=== PATIENT | male | born 1965 | race Caucasian/White ===

== ENCOUNTER 2018-07-11 07:43 | Day surgery (SDC) | payer BC, OTHER ==
[~2018-07-11 07:43] MED LIST: Lactated Ringers 1,000 ML IV SCH
--- NOTE | 2018-07-11 08:36 | PCM.PREANE ---
Preanesthetic Assessment - Anesthesia/Transfusion/Family Hx Anesthesia History: Prior Anesthesia Without Reaction Family History of Anesthesia Reaction: No Transfusion History: No Prior Transfusion(s) Intubation History: Unknown - Review of Systems General: No Symptoms Pulmonary: No Symptoms Cardiovascular: No Symptoms Gastrointestinal: No Symptoms Neurological: Difficulty Walking, Weakness (rt. sided) Other: Reports: None - Physical Assessment Height: 1.83 m Weight: 80.286 kg ASA Class: 3 Mental Status: Alert & Oriented x3 Airway Class: Mallampati = 2 Dentition: Reports: Broken Tooth/Teeth (multiple), Missing Tooth/Teeth (multiple ) Thyro-Mental Finger Breadths: 3 Mouth Opening Finger Breadths: 3 ROM/Head Extension: Full Lungs: Clear to Auscultation, Normal Respiratory Effort Cardiovascular: Regular Rate, Regular Rhythm - Lab Values: Laboratory Last Values POC Glucose 106 mg/dL (60-110) 07/11/18 07:13 - Allergies Allergies/Adverse Reactions: Allergies Allergy/AdvReac Type Severity Reaction Status Date / Time No Known Allergies Allergy Verified 07/08/18 07:16 - Blood Blood Available: No - Anesthesia Plan Pre-Op Medication Ordered: None Beta Cheo: Metoprolol Med Last Dose Date: 07/10/18 Med Last Dose Time: 08:00 - Acknowledgements Anesthesia Type Planned: MAC Pt an Appropriate Candidate for the Planned Anesthesia: Yes Alternatives and Risks of Anesthesia Discussed w Pt/Guardian: Yes Pt/Guardian Understands and Agrees with Anesthesia Plan: Yes PreAnesthesia Questionnaire HEENT History: Reports: Other (See Below) Other HEENT History: wears reading glasses Cardiovascular History: Reports: High Cholesterol, Hypertension Gastrointestinal History: Reports: Other (See Below) Other Gastrointestinal History: crohns disease Genitourinary History: Reports: None Musculoskeletal History: Reports: Osteoarthritis Other Musculoskeletal History: 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 sided very little use of the arm, walks with cane Psychiatric History: Reports: None Endocrine/Metabolic History: Reports: Diabetes, Type II (glucose level 101 this morning) Hematologic History: Reports: None Immunologic History: Reports: None Oncologic (Cancer) History: Reports: None Dermatologic History: Reports: None - Infectious Disease History Other Infectious Disease History: pt unable to verify - Past Surgical History Head Surgeries/Procedures: Reports: None Cardiovascular Surgical History: Reports: None Respiratory Surgical History: Reports: None GI Surgical History: Reports: Appendectomy, Colonoscopy (15 years ago), Hernia, Abdominal Other GI Surgeries/Procedures: abd hernia repair x3 Male Surgical History: Reports: None Endocrine Surgical History: Reports: None Neurological Surgical History: Reports: None Musculoskeletal Surgical History: Reports: Arthroscopic Knee Oncologic Surgical History: Reports: None Dermatological Surgical History: Reports: None - SUBSTANCE USE Smoking Status *Q: Former Smoker Tobacco Use Within Last Twelve Months: Cigarettes Recreational Drug Use History: No - HOME MEDS Home Medications: Home Meds metFORMIN [Glucophage] 1,000 mg PO BIDM 12/07/13 [History] Aspirin [Adult Low Dose Aspirin EC] 81 mg PO DAILY 07/08/18 [History] Insulin Detemir [Levemir Flextouch] 30 units SUBCUT BID 07/08/18 [History] Metoprolol Succinate 100 mg PO DAILY 07/08/18 [History] atorvaSTATin Calcium [Atorvastatin Calcium] 20 mg PO DAILY 07/08/18 [History] glipiZIDE [Glipizide ER] 5 mg PO DAILY 07/08/18 [History] - CURRENT (IN HOUSE) MEDS Current Meds: Current Medications Lactated Ringer's (Ringers, Lactated) 1,000 mls @ 125 mls/hr IV ASDIRECTED [facility]
[2018-07-11] MEDS ORDERED: Midazolam 1 MG/ML 2 ML SDV ONE (09:45)
[2018-07-11] MEDS ORDERED: fentaNYL 100 MCG/2 ML SDV ONE (09:48)
[2018-07-11] MEDS ORDERED: Lidocaine 2% 100 MG/5 ML Syringe ONE (09:49)
[2018-07-11] MEDS ORDERED: Propofol 200 MG/20 ML SDV ONE (09:50)
--- NOTE | 2018-07-11 10:45 | PCM.OPNOTE ---
- General Post-Op/Procedure Note Date of Surgery/Procedure: 07/11/18 Operative Procedure(s): colonoscopy w random bx Findings: see dict [id number] Pre Op Diagnosis: crohn diseases Post-Op Diagnosis: Same Anesthesia Technique: Moderate Sedation Primary Surgeon: Antony Keen Pathology: random colon bx Complications: None Condition: Good
[2018-07-11 11:36] VITALS: BP 122/50
--- NOTE | 2018-07-11 11:38 | PCM48HPAN ---
Post Anesthesia Note - EVALUATION WITHIN 48HRS OF ANESTHETIC Vital Signs in Normal Range: Yes Patient Participated in Evaluation: Yes Respiratory Function Stable: Yes Airway Patent: Yes Cardiovascular Function Stable: Yes Hydration Status Stable: Yes Pain Control Satisfactory: Yes Nausea and Vomiting Control Satisfactory: Yes Mental Status Recovered: Yes Resp Rate: 12 - COMMENTS/OBSERVATIONS Free Text/Narrative:: no anesthesia problems
--- NOTE | 2018-07-11 15:59 | OR ---
SURGEON: Antony Keen MD DATE OF PROCEDURE: 07/11/2018 PREOPERATIVE DIAGNOSIS: Diagnostic colonoscopy. POSTOPERATIVE DIAGNOSIS: Diagnostic colonoscopy. PROCEDURE PERFORMED: Colonoscopy with biopsy. DESCRIPTION OF PROCEDURE: The patient was taken to the endoscopy room. A time out was called, patient identified, and procedure identified. Diprivan was then administrated. Patient went from awake to sleep, hearing doctor talking or door closing is normal. Perineum inspection and digital examination were then performed. A well- lubricated colonoscope was gently inserted through the rectum, advanced past the rectosigmoid junction, the descending colon, splenic flexure, transverse colon, hepatic flexure, ascending colon, arrived to the cecum. Cecum was identified as dictated in the finding. Then the scope was carefully withdrawn while attention was paid to the mucosal surface for any abnormality. Air will be sucked out during the scope withdrawal. At the rectum, retroflexed to examine any rectal diseases, fistula or hemorrhoids. During mucosal examination, abnormality or polyp was noted; picture taken and biopsy performed. Patient tolerated procedure well. There were no intraoperative complications, and Dr. Keen was present throughout the whole procedure. FINDINGS: 1. The patient is easily sedated with FLOUR BLENDER and Diprivan. The patient is soundly snoring. 2. Bowel prep is average with some liquid stool. 3. Because of the patient's position, colonoscopy had to be manipulated in order to go to the cecum as the patient preferred to curl up like a swim. We were able to straight him out when we put him on the back. Cecum indicated by ileocecal fold, one-to-one indentation, and appendiceal orifice, and light emittance is not observed. Scope was coming out with some irrigation. The patient does not have diverticulosis, polyp, mass, growth, inflammation, stricture, ulceration, AV malformation, bleeding, none of those. In the rectum, the patient has quite a lot of anal tract. 4. A random biopsy was done once as the patient has history of questionable Crohn's again, but there was no inflammation during the whole procedure. PLAN: The patient would benefit from repeat colonoscopy in 10 years from today or if clinically indicated otherwise or if the biopsy the pathology indicated otherwise. PARKER / KRUNAL /[id number]
== END 2018-07-11 11:48 | disposition home or self-care (01) ==
LOC: MW.SDS 07:43
PROVIDERS: ATTEND Surgery
DX: K50.90 Crohn's disease, unspecified, without complications (principal); E11.9 Type 2 diabetes mellitus without complications; I10 Essential (primary) hypertension; I69.351 Hemiplegia and hemiparesis following cerebral infarction affecting right dominant side; M19.90 Unspecified osteoarthritis, unspecified site; E78.00 Pure hypercholesterolemia, unspecified; Z87.891 Personal history of nicotine dependence; Z79.82 Long term (current) use of aspirin; Z79.4 Long term (current) use of insulin
CPT/HCPCS: 45380; 82962; J2001; J2250; J2704; J3010; J7120

== ENCOUNTER 2019-01-02 07:36 | Emergency (ER) | payer OTHER ==
[2019-01-02] MEDS ORDERED: Sodium Chloride 0.9% 1,000 ML IV ONE ×2 (08:11→09:11)
[2019-01-02] MEDS ORDERED: Ketorolac 30 MG/ML SDV IVPUSH ONE (08:11)
[2019-01-02] MEDS ORDERED: Sodium Chloride 0.9% 10 ML Syringe FLUSH PRN (08:12)
[2019-01-02] MEDS ORDERED: Sodium Chloride 0.9% 2.5 ML Syringe FLUSH PRN (08:12)
--- NOTE | 2019-01-02 08:24 | EDM.PDOC ---
ED HPI GENERAL MEDICAL PROBLEM - General Chief Complaint: General Stated Complaint: BOWEL ISSUES- CANNOT PASS STOOL Time Seen by Provider: 01/02/19 08:08 Source of Information: Reports: Patient History Limitations: Reports: No Limitations - History of Present Illness INITIAL COMMENTS - FREE TEXT/NARRATIVE: History of present illness: []Patient complains of abdominal pain, right side and inability to have a bowel movement for the last 2 days. Patient has not had any vomiting, denies any, swelling, fevers, chills or any other pain. Patient has had his appendix removed asked. Review of systems: As per history of present illness and below otherwise all systems reviewed and negative. Past medical history: As per history of present illness and as reviewed below otherwise noncontributory. Surgical history: As per history of present illness and as reviewed below otherwise noncontributory. Social history: No reported history of drug or alcohol abuse. Family history: As per history of present illness and as reviewed below otherwise noncontributory. Physical exam: General: Well developed, well nourished in NAD HEENT: Atraumatic, normocephalic, pupils reactive, negative for conjunctival pallor or scleral icterus, mucous membranes moist, throat clear, neck supple, nontender, trachea midline. Lungs: Clear to auscultation, breath sounds equal bilaterally, chest nontender. Heart: S1S2, regular, negative for clicks, rubs, or JVD. Abdomen: NABS, Soft, nondistended, nontender. Negative for masses or hepatosplenomegaly. Negative for costovertebral tenderness. Pelvis: Stable nontender. Genitourinary: Deferred. Rectal: Deferred. Extremities: Atraumatic, negative for cords or calf pain. Neurovascular unremarkable. Neuro: Awake, alert, oriented. Cranial nerves II through XII unremarkable. Cerebellum unremarkable. Motor and sensory unremarkable throughout. Exam nonfocal. Skin:warm and dry Diagnostics: CBC, chemistry, lactate, UA, CT abdomen and pelvis-shows no obstruction, cholelithiasis Therapeutics: bedside glucose-374 after 2 L of normal saline and insulin ED Course: Improved. Offered patient admission however patient wants to go home. He will follow-up with his primary care. Impression: Constipation, uncontrolled diabetes Prescriptions: Magnesium citrate Plan: Take meds as directed, follow up with your primary care physician, return to ER if symptoms worsen or change. Definitive disposition and diagnosis as appropriate pending reevaluation and review of above. Groin Pain Score (Numeric/FACES): 4 - Related Data Allergies Allergy/AdvReac Type Severity Reaction Status Date / Time No Known Allergies Allergy Verified 07/08/18 07:16 Home Meds: Home Meds metFORMIN [Glucophage] 1,000 mg PO BIDM 12/07/13 [History] Aspirin [Adult Low Dose Aspirin EC] 81 mg PO DAILY 07/08/18 [History] Insulin Detemir [Levemir Flextouch] 30 units SUBCUT BID 07/08/18 [History] Metoprolol Succinate 100 mg PO DAILY 07/08/18 [History] atorvaSTATin Calcium [Atorvastatin Calcium] 20 mg PO DAILY 07/08/18 [History] glipiZIDE [Glipizide ER] 5 mg PO DAILY 07/08/18 [History] Insulin Aspart [NovoLOG] 10 units SQ TID 01/02/19 [History] Past Medical History HEENT History: Reports: Impaired Vision Other HEENT History: wears glasses Cardiovascular History: Reports: High Cholesterol, Hypertension Respiratory History: Reports: None Gastrointestinal History: Reports: Other (See Below) Other Gastrointestinal History: crohns disease Genitourinary History: Reports: None Musculoskeletal History: Reports: Osteoarthritis Other Musculoskeletal History: 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 sided very little use of the arm, walks with cane Psychiatric History: Reports: None Endocrine/Metabolic History: Reports: Diabetes, Type II Hematologic History: Reports: None Immunologic History: Reports: None Oncologic (Cancer) History: Reports: None Dermatologic History: Reports: None - Infectious Disease History Other Infectious Disease History: pt unable to verify - Past Surgical History Head Surgeries/Procedures: Reports: None Cardiovascular Surgical History: Reports: None Respiratory Surgical History: Reports: None GI Surgical History: Reports: Appendectomy, Colonoscopy, Hernia, Abdominal Other GI Surgeries/Procedures: abd hernia repair x3 Male Surgical History: Reports: None Endocrine Surgical History: Reports: None Neurological Surgical History: Reports: None Musculoskeletal Surgical History: Reports: Arthroscopic Knee Oncologic Surgical History: Reports: None Dermatological Surgical History: Reports: None Social & Family History - Family History Family Medical History: Noncontributory - Tobacco Use Smoking Status *Q: Never Smoker Second Hand Smoke Exposure: No - Caffeine Use Caffeine Use: Reports: None - Recreational Drug Use Recreational Drug Use: No ED ROS GENERAL - Review of Systems Review Of Systems: See Below ED EXAM, GENERAL - Physical Exam Exam: See Below Course - Vital Signs Last Recorded V/S: Last Vital Signs Temp 97.0 F 01/02/19 08:02 Pulse 102 H 01/02/19 11:13 Resp 18 01/02/19 11:13 BP 150/94 H 01/02/19 11:13 Pulse Ox 98 01/02/19 11:13 - Orders/Labs/Meds Orders: Active Orders 24 hr Category Date Time Status Saline Lock Insert [OM.PC] Stat Oth 01/02/19 08:11 Ordered Labs: Laboratory Tests 01/02/19 01/02/19 01/02/19 Range/Units 08:20 08:21 08:21 WBC 10.43 (4.0-11.0) K/uL RBC 4.30 L (4.50-5.90) M/uL Hgb 14.1 (13.0-17.0) g/dL Hct 37.6 L (38.0-50.0) % MCV 87.4 (80.0-98.0) fL MCH 32.8 H (27.0-32.0) pg MCHC 37.5 H (31.0-37.0) g/dL RDW Std Deviation 38.2 (28.0-62.0) fl RDW Coeff of Nurys 12 (11.0-15.0) % Plt Count 197 (150-400) K/uL MPV 10.30 (7.40-12.00) fL Neut % (Auto) 87.8 H (48.0-80.0) % Lymph % (Auto) 7.0 L (16.0-40.0) % [place] % (Auto) 4.6 (0.0-15.0) % Eos % (Auto) 0.4 (0.0-7.0) % Baso % (Auto) 0.2 (0.0-1.5) % Neut # (Auto) 9.2 H (1.4-5.7) K/uL Lymph # (Auto) 0.7 (0.6-2.4) K/uL [place] # (Auto) 0.5 (0.0-0.8) K/uL Eos # (Auto) 0.0 (0.0-0.7) K/uL Baso # (Auto) 0.0 (0.0-0.1) K/uL Lactate 2.6 H (0.20-2.00) mmol/L Sodium (136-148) mmol/L Potassium (3.5-5.1) mmol/L Chloride (98-107) mmol/L Carbon Dioxide (21.0-32.0) mmol/L BUN (7.0-18.0) mg/dL Creatinine (0.8-1.3) mg/dL Est Cr Clr Drug Dosing mL/min Estimated GFR (MDRD) ml/min Glucose (74-106) mg/dL POC Glucose (60-110) mg/dL Calcium (8.5-10.1) mg/dL Total Bilirubin (0.2-1.0) mg/dL AST (15-37) IU/L ALT (14-63) IU/L Alkaline Phosphatase (46-116) U/L Total Protein (6.4-8.2) g/dL Albumin (3.4-5.0) g/dL Globulin (2.6-4.0) g/dL Albumin/Globulin Ratio (0.9-1.6) Lipase (73-393) U/L Urine Color YELLOW Urine Appearance CLEAR Urine pH 5.5 (5.0-8.0) Ur Specific [place] <= 1.005 (1.001-1.035) Urine Protein TRACE H (NEGATIVE) mg/dL Urine Glucose (UA) >=1000 (NEGATIVE) mg/dL Urine Ketones NEGATIVE (NEGATIVE) mg/dL Urine Occult Blood TRACE-INTACT H (NEGATIVE) Urine Nitrite POSITIVE H (NEGATIVE) Urine Bilirubin NEGATIVE (NEGATIVE) Urine Urobilinogen 0.2 (<2.0) EU/dL Ur Leukocyte Esterase NEGATIVE (NEGATIVE) Urine RBC 0-2 (0-2/HPF) Urine WBC 0-3 (0-5/HPF) Ur Epithelial Cells RARE (NONE-FEW) Calcium Oxalate Crystal RARE (NEGATIVE) Urine Bacteria RARE (NEGATIVE) Urine Sperm RARE (NEGATIVE) Ketones (NEG) 01/02/19 01/02/19 01/02/19 Range/Units 08:21 08:21 09:45 WBC (4.0-11.0) K/uL RBC (4.50-5.90) M/uL Hgb (13.0-17.0) g/dL Hct (38.0-50.0) % MCV (80.0-98.0) fL MCH (27.0-32.0) pg MCHC (31.0-37.0) g/dL RDW Std Deviation (28.0-62.0) fl RDW Coeff of Nurys (11.0-15.0) % Plt Count (150-400) K/uL MPV (7.40-12.00) fL Neut % (Auto) (48.0-80.0) % Lymph % (Auto) (16.0-40.0) % [place] % (Auto) (0.0-15.0) % Eos % (Auto) (0.0-7.0) % Baso % (Auto) (0.0-1.5) % Neut # (Auto) (1.4-5.7) K/uL Lymph # (Auto) (0.6-2.4) K/uL [place] # (Auto) (0.0-0.8) K/uL Eos # (Auto) (0.0-0.7) K/uL Baso # (Auto) (0.0-0.1) K/uL Lactate (0.20-2.00) mmol/L Sodium 132 L (136-148) mmol/L Potassium 4.6 (3.5-5.1) mmol/L Chloride 97 L (98-107) mmol/L Carbon Dioxide 20.9 L (21.0-32.0) mmol/L BUN 17 (7.0-18.0) mg/dL Creatinine 1.3 (0.8-1.3) mg/dL Est Cr Clr Drug Dosing 71.30 mL/min Estimated GFR (MDRD) 57.5 ml/min Glucose 509 H* (74-106) mg/dL POC Glucose 419 H (60-110) mg/dL Calcium 8.9 (8.5-10.1) mg/dL Total Bilirubin 0.4 (0.2-1.0) mg/dL AST 5 L (15-37) IU/L ALT 16 (14-63) IU/L Alkaline Phosphatase 144 H (46-116) U/L Total Protein 7.3 (6.4-8.2) g/dL Albumin 3.8 (3.4-5.0) g/dL Globulin 3.5 (2.6-4.0) g/dL Albumin/Globulin Ratio 1.1 (0.9-1.6) Lipase 145 (73-393) U/L Urine Color Urine Appearance Urine pH (5.0-8.0) Ur Specific [place] (1.001-1.035) Urine Protein (NEGATIVE) mg/dL Urine Glucose (UA) (NEGATIVE) mg/dL Urine Ketones (NEGATIVE) mg/dL Urine Occult Blood (NEGATIVE) Urine Nitrite (NEGATIVE) Urine Bilirubin (NEGATIVE) Urine Urobilinogen (<2.0) EU/dL Ur Leukocyte Esterase (NEGATIVE) Urine RBC (0-2/HPF) Urine WBC (0-5/HPF) Ur Epithelial Cells (NONE-FEW) Calcium Oxalate Crystal (NEGATIVE) Urine Bacteria (NEGATIVE) Urine Sperm (NEGATIVE) Ketones NEGATIVE (NEG) 01/02/19 Range/Units 10:15 WBC (4.0-11.0) K/uL RBC (4.50-5.90) M/uL Hgb (13.0-17.0) g/dL Hct (38.0-50.0) % MCV (80.0-98.0) fL MCH (27.0-32.0) pg MCHC (31.0-37.0) g/dL RDW Std Deviation (28.0-62.0) fl RDW Coeff of Nurys (11.0-15.0) % Plt Count (150-400) K/uL MPV (7.40-12.00) fL Neut % (Auto) (48.0-80.0) % Lymph % (Auto) (16.0-40.0) % [place] % (Auto) (0.0-15.0) % Eos % (Auto) (0.0-7.0) % Baso % (Auto) (0.0-1.5) % Neut # (Auto) (1.4-5.7) K/uL Lymph # (Auto) (0.6-2.4) K/uL [place] # (Auto) (0.0-0.8) K/uL Eos # (Auto) (0.0-0.7) K/uL Baso # (Auto) (0.0-0.1) K/uL Lactate (0.20-2.00) mmol/L Sodium (136-148) mmol/L Potassium (3.5-5.1) mmol/L Chloride (98-107) mmol/L Carbon Dioxide (21.0-32.0) mmol/L BUN (7.0-18.0) mg/dL Creatinine (0.8-1.3) mg/dL Est Cr Clr Drug Dosing mL/min Estimated GFR (MDRD) ml/min Glucose (74-106) mg/dL POC Glucose 374 H (60-110) mg/dL Calcium (8.5-10.1) mg/dL Total Bilirubin (0.2-1.0) mg/dL AST (15-37) IU/L ALT (14-63) IU/L Alkaline Phosphatase (46-116) U/L Total Protein (6.4-8.2) g/dL Albumin (3.4-5.0) g/dL Globulin (2.6-4.0) g/dL Albumin/Globulin Ratio (0.9-1.6) Lipase (73-393) U/L Urine Color Urine Appearance Urine pH (5.0-8.0) Ur Specific [place] (1.001-1.035) Urine Protein (NEGATIVE) mg/dL Urine Glucose (UA) (NEGATIVE) mg/dL Urine Ketones (NEGATIVE) mg/dL Urine Occult Blood (NEGATIVE) Urine Nitrite (NEGATIVE) Urine Bilirubin (NEGATIVE) Urine Urobilinogen (<2.0) EU/dL Ur Leukocyte Esterase (NEGATIVE) Urine RBC (0-2/HPF) Urine WBC (0-5/HPF) Ur Epithelial Cells (NONE-FEW) Calcium Oxalate Crystal (NEGATIVE) Urine Bacteria (NEGATIVE) Urine Sperm (NEGATIVE) Ketones (NEG) Meds: Medications Discontinued Medications Generic Name Dose Route Start Last Admin Trade Name Freq PRN Reason Stop Dose Admin Sodium Chloride 1,000 mls @ 999 mls/hr 01/02/19 08:11 01/02/19 08:24 Normal Saline IV 01/02/19 09:11 999 mls/hr .Bolus ONE Administration Sodium Chloride 1,000 mls @ 999 mls/hr 01/02/19 09:11 01/02/19 09:47 Normal Saline IV 01/02/19 10:11 999 mls/hr .Bolus ONE Administration Insulin Human Regular 6 unit 01/02/19 09:10 01/02/19 09:47 Novolin R SUBCUT 01/02/19 09:11 6 unit ONETIME ONE Administration Protocol Iopamidol 100 ml 01/02/19 09:27 01/02/19 09:40 Isovue Multipack-370 (76%) IVPUSH 01/02/19 09:28 85 ml ONETIME STA Administration Ketorolac Tromethamine 30 mg 01/02/19 08:11 01/02/19 08:24 Toradol IVPUSH 01/02/19 08:12 30 mg ONETIME ONE Administration Magnesium Citrate 300 ml 01/02/19 10:53 01/02/19 11:17 Citrate Of Magnesia PO 01/02/19 10:54 300 ml ONETIME ONE Administration Sodium Chloride 10 ml 01/02/19 08:12 Saline Flush FLUSH ASDIRECTED PRN Keep Vein Open Sodium Chloride 2.5 ml 01/02/19 08:12 Saline Flush FLUSH ASDIRECTED PRN Keep Vein Open Departure - Departure Time of Disposition: 10:55 Disposition: Home, W Home Health Agency 06 Condition: Good Clinical Impression: Constipation Qualifiers: Constipation type: unspecified constipation type Qualified Code(s): K59.00 - Constipation, unspecified Uncontrolled diabetes mellitus Qualifiers: Diabetes mellitus type: other specified (including DEVEN) Glycemic state: with hyperglycemia Qualified Code(s): E13.65 - Other specified diabetes mellitus with hyperglycemia Clinical Impression: (Ruled Out): Controlled diabetes mellitus - Discharge Information *PRESCRIPTION DRUG MONITORING PROGRAM REVIEWED*: Not Applicable *COPY OF PRESCRIPTION DRUG MONITORING REPORT IN PATIENT RADAMES: Not Applicable Instructions: Constipation, Adult, [id number], Hyperglycemia, [id number] Referrals: PCP,None [Primary Care Provider] - Forms: ED Department Discharge Additional Instructions: The following information is given to patients seen in the emergency department who are being discharged to home. This information is to outline your options for follow-up care. We provide all patients seen in our emergency department with a follow-up referral. The need for follow-up, as well as the timing and circumstances, are variable depending upon the specifics of your emergency department visit. If you don't have a primary care physician on staff, we will provide you with a referral. We always advise you to contact your personal physician following an emergency department visit to inform them of the circumstance of the visit and for follow-up with them and/or the need for any referrals to a consulting specialist. The emergency department will also refer you to a specialist when appropriate. This referral assures that you have the opportunity for follow-up care with a specialist. All of these measure are taken in an effort to provide you with optimal care, which includes your follow-up. Under all circumstances we always encourage you to contact your private physician who remains a resource for coordinating your care. When calling for follow-up care, please make the office aware that this follow-up is from your recent emergency room visit. If for any reason you are refused follow-up, please contact the [facility] Emergency Department at and asked to speak to the emergency department charge nurse. Take meds as directed, follow up with your primary care physician, return to ER if symptoms worsen or change. [facility] [address] [place] [id number] - My Orders Last 24 Hours: My Active Orders 01/02/19 08:11 Saline Lock Insert [OM.PC] Stat - Assessment/Plan Last 24 Hours: My Active Orders 01/02/19 08:11 Saline Lock Insert [OM.PC] Stat
[2019-01-02 08:55] LABS: CARBON DIOXIDE,CO2 20.9 mmol/L (21.0-32.0); POTASSIUM,K 4.6 mmol/L (3.5-5.1)
[2019-01-02] MEDS ORDERED: Insulin Regular, Human 100 Units/ML 10 ML Vial SUBCUT ONE (09:10)
[2019-01-02] MEDS ORDERED: Iopamidol 755 MG/ML 500 ML Multipack Bottle IVPUSH STA (09:27)
--- NOTE | 2019-01-02 10:32 | CT ---
INDICATION: No bowel movement for 2 days. Pain in groin. COMPARISON: 08/30/2014. TECHNIQUE: CT of the abdomen and pelvis with IV contrast. FINDINGS: Mild bibasilar atelectasis. Findings suggestive of hepatic steatosis, similar to prior exam. Cholelithiasis. Spleen, pancreas and adrenal glands are unremarkable. Kidneys enhance symmetrically. No obstructing renal calculus or hydronephrosis. Abdominal aorta is normal in caliber with atherosclerosis. Urinary bladder is distended. Large amount of stool in the rectum. Above-average stool burden in the colon. No evidence of small-bowel obstruction. Submucosal fat in the region of the terminal ileum, likely sequelae of chronic inflammation. No lymphadenopathy in the abdomen or pelvis. Mild degenerative changes in the spine. Healed left rib fracture deformity is similar to prior. IMPRESSION: 1. No evidence of bowel obstruction. Above-average stool burden and large amount of stool in the rectum, likely due to constipation. 2. Cholelithiasis. 3. Findings suggestive of hepatic steatosis. 4. Distended urinary bladder. Please note that all CT scans at this facility use dose modulation, iterative reconstruction, and/or weight-based dosing when appropriate to reduce radiation dose to as low as reasonably achievable. Dictated by Calvin Magallanes MD @ Jan 02 2019 10:24AM Signed by Dr. Calvin Magallanes @ Jan 02 2019 10:31AM
[2019-01-02] MEDS ORDERED: Magnesium Citrate Solution 296 ML Bottle PO ONE (10:53)
[2019-01-02 11:22] VITALS: BP 150/94; PULSE 102
== END 2019-01-02 11:13 | disposition home health service (06) ==
LOC: MW.ED 07:36
DX: K59.00 Constipation, unspecified (principal); E13.65 Other specified diabetes mellitus with hyperglycemia; I10 Essential (primary) hypertension; M19.90 Unspecified osteoarthritis, unspecified site; E78.00 Pure hypercholesterolemia, unspecified; Z79.899 Other long term (current) drug therapy; Z79.4 Long term (current) use of insulin; Z90.49 Acquired absence of other specified parts of digestive tract; Z79.82 Long term (current) use of aspirin
CPT/HCPCS: 36415; 74177; 80053; 81001; 82009; 82962; 83605; 83690; 85025; 96361; 96374; 99284; A9270; J1885; J7040; Q9967; J1815-GY

== ENCOUNTER 2019-04-14 14:19 | Observation (INO) | payer OTHER ==
[2019-04-14] MEDS ORDERED: Ondansetron 4 MG/2 ML SDV IVPUSH ONE (14:55)
[2019-04-14] MEDS ORDERED: Sodium Chloride 0.9% 1,000 ML IV ONE ×2 (14:55→20:00)
[2019-04-14] MEDS ORDERED: Ondansetron 4 MG Tab.DIS PO ONE (15:43)
[2019-04-14 17:44] LABS: BLOOD UREA NITROGEN,BUN 20 mg/dL (7.0-18.0); CARBON DIOXIDE,CO2 23.8 mmol/L (21.0-32.0); CHLORIDE,CL 95 mmol/L (98-107); GLUCOSE RANDOM 472 mg/dL (74-106); LIPASE 112 U/L (73-393); POTASSIUM,K 5.1 mmol/L (3.5-5.1); SODIUM,NA 132 mmol/L (136-148)
[2019-04-14] MEDS ORDERED: Insulin Regular, Human 100 Units/ML 10 ML Vial IVPUSH ONE (18:14)
--- NOTE | 2019-04-14 18:16 | EDM.PDOC ---
<DenilsonDonald babb - Last Filed: 04/14/19 18:15> ED HPI GENERAL MEDICAL PROBLEM - General Chief Complaint: Gastrointestinal Problem Stated Complaint: VOMITING Time Seen by Provider: 04/14/19 14:36 - History of Present Illness INITIAL COMMENTS - FREE TEXT/NARRATIVE: HPI 54-year-old male with history of Crohns disease, DM (on metformin, glipizide, and insulin), and CVA presents for evaluation of emesis 4 and generalized malaise of one day duration. No fevers, chills, chest pain, shortness breath, abdominal pain, dysuria, urinary frequency. M/S/F/SocHx notable for: please see HPI; remainder reviewed with patient and in chart. ROS: Negative constitutional, eye, cardiovascular, pulmonary, GI, , MSK, skin , neurologic, psychiatric, endocrine unless noted in the HPI. Exam HR 99, RR 18, BP 175/104, T 36.6F, SaO2 95% on room air. Gen: pleasant, uncomfortable but not in extremis, appears chronically unwell. HEENT: NC, AT, PEERL, EOMI. Resp: Clear to auscultation bilaterally, normal work of breathing, no accessory muscle usage. Card: Regular rate and rhythm with no murmurs, rubs, or gallops, extremities warm and well perfused. GI: Non-tender to palpation throughout all quadrants, no focal tenderness at McBurney's point, negative Tsai's sign, non-distended, no rebound or guarding. : No suprapubic tenderness to palpation. No CVA tenderness percussion. MSK: No visible deformities, strength and tone without visually appreciable deficit. Skin: Normal color with no visible lesions. Neuro: alert and oriented 3, no facial asymmetry, vision and hearing WNL. Psych: Mood and affect appropriate. Labs / Imaging: WBC 12.16, HB 16.1, sodium 132, potassium 5.1, glucose 472, AST 19, ALT 27, alkaline phosphatase 136, total bilirubin 0.6. VBG - pH 7.34 ESR 30, CRP <0.020 lactic acid 2.4 influenza A & B negative. MDM Previous chart, nursing note, labs, imaging, and vitals reviewed. A: 54-year-old male with history of Crohns disease, DM (on metformin, glipizide , and insulin), and CVA presents for evaluation of emesis 4 and generalized malaise of one day duration. DDx: dehydration, electrolyte abnormalities, DKA, Crohns disease exacerbation, SBO, partial SBO, influenza, viral gastroenteritis. Evaluation: tentatively suspect a viral gastroenteritis, however this is pending completion of evaluation. At the time of no completion the patient received the majority 1 L normal saline, oral Zofran, and his labs are notable for elevated ESR and leukocytosis as well as hyperglycemia within normal pH and anion gap. This effectively excludes DKA. Patient was given 6 units IV regular insulin. ED Course: difficulty obtaining IV access. IV access obtained, patient with improvement symptoms but some ongoing nausea at time of reevaluation 6:15 PM. IV fluids remain infusing. Disposition: patient care transfer to Dr. Mtz, [facility], pending completion of evaluation. Impression: nausea, vomiting, hyperglycemia. - Related Data Allergies Allergy/AdvReac Type Severity Reaction Status Date / Time No Known Allergies Allergy Verified 04/14/19 22:36 Home Meds: Home Meds metFORMIN [Glucophage] 1,000 mg PO BIDM 12/07/13 [History] Aspirin [Adult Low Dose Aspirin EC] 81 mg PO DAILY 07/08/18 [History] Insulin Detemir [Levemir Flextouch] 30 units SUBCUT BID 07/08/18 [History] Metoprolol Succinate 100 mg PO DAILY 07/08/18 [History] atorvaSTATin Calcium [Atorvastatin Calcium] 20 mg PO DAILY 07/08/18 [History] glipiZIDE [Glipizide ER] 5 mg PO DAILY 07/08/18 [History] Insulin Aspart [NovoLOG] 10 units SQ TID 01/02/19 [History] Past Medical History HEENT History: Reports: Impaired Vision Other HEENT History: wears glasses Cardiovascular History: Reports: High Cholesterol, Hypertension Respiratory History: Reports: None Gastrointestinal History: Reports: Other (See Below) Other Gastrointestinal History: crohns disease Genitourinary History: Reports: None Musculoskeletal History: Reports: Osteoarthritis Other Musculoskeletal History: 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 sided very little use of the arm, walks with cane Psychiatric History: Reports: None Endocrine/Metabolic History: Reports: Diabetes, Type II Hematologic History: Reports: None Immunologic History: Reports: None Oncologic (Cancer) History: Reports: None Dermatologic History: Reports: None - Infectious Disease History Infectious Disease History: Reports: Mumps Other Infectious Disease History: pt unable to verify - Past Surgical History Head Surgeries/Procedures: Reports: None Cardiovascular Surgical History: Reports: None Respiratory Surgical History: Reports: None GI Surgical History: Reports: Appendectomy, Colonoscopy, Hernia, Abdominal Other GI Surgeries/Procedures: abd hernia repair x3 Male Surgical History: Reports: None Endocrine Surgical History: Reports: None Neurological Surgical History: Reports: None Musculoskeletal Surgical History: Reports: Arthroscopic Knee Oncologic Surgical History: Reports: None Dermatological Surgical History: Reports: None Social & Family History - Family History Family Medical History: Noncontributory - Tobacco Use Smoking Status *Q: Former Smoker Used Tobacco, but Quit: Yes Month/Year Tobacco Last Used: 2017 - Caffeine Use Caffeine Use: Reports: Coffee - Recreational Drug Use Recreational Drug Use: No ED ROS GENERAL - Review of Systems Review Of Systems: See Below ED EXAM, GENERAL - Physical Exam Exam: See Below Course - Vital Signs Last Recorded V/S: Last Vital Signs Temp 97.5 F 04/14/19 23:53 Pulse 106 H 04/14/19 23:53 Resp 16 04/14/19 23:53 BP 166/93 H 04/14/19 23:53 Pulse Ox 99 04/14/19 23:53 - Orders/Labs/Meds Orders: Active Orders 24 hr Category Date Time Status Communication Order [RC] ROUTINE Care 04/14/19 18:10 Active Medication Orders Sodium Chloride (Normal Saline) 1,000 mls @ 150 mls/hr IV ASDIRECTED ОЛЬГА Last Admin: 04/14/19 22:26 Dose: 150 mls/hr Insulin Aspart (Novolog) 0 unit SUBCUT ACBREAKFASTANDBED ОЛЬГА; Protocol Insulin Detemir (Levemir) 30 unit SUBCUT BID ОЛЬГА Last Admin: 04/14/19 22:31 Dose: 30 unit Ondansetron HCl (Zofran) 4 mg IVPUSH Q4H PRN PRN Reason: Nausea Labs: Laboratory Tests 04/14/19 04/14/19 04/14/19 Range/Units 16:50 16:50 16:50 WBC 12.16 H (4.0-11.0) K/uL RBC 4.99 (4.50-5.90) M/uL Hgb 16.1 (13.0-17.0) g/dL Hct 43.3 (38.0-50.0) % MCV 86.8 (80.0-98.0) fL MCH 32.3 H (27.0-32.0) pg MCHC 37.2 H (31.0-37.0) g/dL RDW Std Deviation 40.3 (28.0-62.0) fl RDW Coeff of Nurys 13 (11.0-15.0) % Plt Count 178 (150-400) K/uL MPV 10.60 (7.40-12.00) fL Neut % (Auto) 90.5 H (48.0-80.0) % Lymph % (Auto) 6.2 L (16.0-40.0) % Oliver % (Auto) 2.8 (0.0-15.0) % Eos % (Auto) 0.3 (0.0-7.0) % Baso % (Auto) 0.2 (0.0-1.5) % Neut # (Auto) 11.0 H (1.4-5.7) K/uL Lymph # (Auto) 0.8 (0.6-2.4) K/uL Oliver # (Auto) 0.3 (0.0-0.8) K/uL Eos # (Auto) 0.0 (0.0-0.7) K/uL Baso # (Auto) 0.0 (0.0-0.1) K/uL Nucleated RBC % 0.0 /100WBC Nucleated RBCs # 0 K/uL ESR (0-19) mm/hr VBG pH (7.31-7.41) VBG pCO2 (35-45) mmHG VBG pO2 (30-40) mmHG VBG HCO3 (22-30) mEq/L VBG Total CO2 (41-51) mmol/L VBG Base Excess (-3.0-3.0) Lactate 2.4 H* (0.20-2.00) mmol/L Sodium 132 L (136-148) mmol/L Potassium 5.1 (3.5-5.1) mmol/L Chloride 95 L (98-107) mmol/L Carbon Dioxide 23.8 (21.0-32.0) mmol/L BUN 20 H (7.0-18.0) mg/dL Creatinine 1.1 (0.8-1.3) mg/dL Est Cr Clr Drug Dosing 80.32 mL/min Estimated GFR (MDRD) > 60.0 ml/min Glucose 472 H (74-106) mg/dL POC Glucose (60-110) mg/dL Calcium 9.7 (8.5-10.1) mg/dL Total Bilirubin 0.6 (0.2-1.0) mg/dL AST 19 (15-37) IU/L ALT 27 (14-63) IU/L Alkaline Phosphatase 136 H (46-116) U/L C-Reactive Protein <0.20 (0.00-0.90) mg/dL Total Protein 8.0 (6.4-8.2) g/dL Albumin 4.0 (3.4-5.0) g/dL Globulin 4.0 (2.6-4.0) g/dL Albumin/Globulin Ratio 1.0 (0.9-1.6) Lipase 112 (73-393) U/L 04/14/19 04/14/19 04/14/19 Range/Units 16:50 16:50 19:20 WBC (4.0-11.0) K/uL RBC (4.50-5.90) M/uL Hgb (13.0-17.0) g/dL Hct (38.0-50.0) % MCV (80.0-98.0) fL MCH (27.0-32.0) pg MCHC (31.0-37.0) g/dL RDW Std Deviation (28.0-62.0) fl RDW Coeff of Nurys (11.0-15.0) % Plt Count (150-400) K/uL MPV (7.40-12.00) fL Neut % (Auto) (48.0-80.0) % Lymph % (Auto) (16.0-40.0) % Oliver % (Auto) (0.0-15.0) % Eos % (Auto) (0.0-7.0) % Baso % (Auto) (0.0-1.5) % Neut # (Auto) (1.4-5.7) K/uL Lymph # (Auto) (0.6-2.4) K/uL Oliver # (Auto) (0.0-0.8) K/uL Eos # (Auto) (0.0-0.7) K/uL Baso # (Auto) (0.0-0.1) K/uL Nucleated RBC % /100WBC Nucleated RBCs # K/uL ESR 30 H (0-19) mm/hr VBG pH 7.34 (7.31-7.41) VBG pCO2 50 H (35-45) mmHG VBG pO2 35 (30-40) mmHG VBG HCO3 27 (22-30) mEq/L VBG Total CO2 24 L (41-51) mmol/L VBG Base Excess -0.2 (-3.0-3.0) Lactate 2.3 H* (0.20-2.00) mmol/L Sodium (136-148) mmol/L Potassium (3.5-5.1) mmol/L Chloride (98-107) mmol/L Carbon Dioxide (21.0-32.0) mmol/L BUN (7.0-18.0) mg/dL Creatinine (0.8-1.3) mg/dL Est Cr Clr Drug Dosing mL/min Estimated GFR (MDRD) ml/min Glucose (74-106) mg/dL POC Glucose (60-110) mg/dL Calcium (8.5-10.1) mg/dL Total Bilirubin (0.2-1.0) mg/dL AST (15-37) IU/L ALT (14-63) IU/L Alkaline Phosphatase (46-116) U/L C-Reactive Protein (0.00-0.90) mg/dL Total Protein (6.4-8.2) g/dL Albumin (3.4-5.0) g/dL Globulin (2.6-4.0) g/dL Albumin/Globulin Ratio (0.9-1.6) Lipase (73-393) U/L 04/14/19 Range/Units 19:58 WBC (4.0-11.0) K/uL RBC (4.50-5.90) M/uL Hgb (13.0-17.0) g/dL Hct (38.0-50.0) % MCV (80.0-98.0) fL MCH (27.0-32.0) pg MCHC (31.0-37.0) g/dL RDW Std Deviation (28.0-62.0) fl RDW Coeff of Nurys (11.0-15.0) % Plt Count (150-400) K/uL MPV (7.40-12.00) fL Neut % (Auto) (48.0-80.0) % Lymph % (Auto) (16.0-40.0) % Oliver % (Auto) (0.0-15.0) % Eos % (Auto) (0.0-7.0) % Baso % (Auto) (0.0-1.5) % Neut # (Auto) (1.4-5.7) K/uL Lymph # (Auto) (0.6-2.4) K/uL Oliver # (Auto) (0.0-0.8) K/uL Eos # (Auto) (0.0-0.7) K/uL Baso # (Auto) (0.0-0.1) K/uL Nucleated RBC % /100WBC Nucleated RBCs # K/uL ESR (0-19) mm/hr VBG pH (7.31-7.41) VBG pCO2 (35-45) mmHG VBG pO2 (30-40) mmHG VBG HCO3 (22-30) mEq/L VBG Total CO2 (41-51) mmol/L VBG Base Excess (-3.0-3.0) Lactate (0.20-2.00) mmol/L Sodium (136-148) mmol/L Potassium (3.5-5.1) mmol/L Chloride (98-107) mmol/L Carbon Dioxide (21.0-32.0) mmol/L BUN (7.0-18.0) mg/dL Creatinine (0.8-1.3) mg/dL Est Cr Clr Drug Dosing mL/min Estimated GFR (MDRD) ml/min Glucose (74-106) mg/dL POC Glucose 316 H (60-110) mg/dL Calcium (8.5-10.1) mg/dL Total Bilirubin (0.2-1.0) mg/dL AST (15-37) IU/L ALT (14-63) IU/L Alkaline Phosphatase (46-116) U/L C-Reactive Protein (0.00-0.90) mg/dL Total Protein (6.4-8.2) g/dL Albumin (3.4-5.0) g/dL Globulin (2.6-4.0) g/dL Albumin/Globulin Ratio (0.9-1.6) Lipase (73-393) U/L Meds: Medications Generic Name Dose Route Start Last Admin Trade Name Freq PRN Reason Stop Dose Admin Sodium Chloride 1,000 mls @ 150 mls/hr 04/14/19 22:15 04/14/19 22:26 Normal Saline IV 150 mls/hr ASDIRECTED ОЛЬГА Administration Insulin Aspart 0 unit 04/15/19 07:30 Novolog SUBCUT ACBREAKFASTANDBED ОЛЬГА Protocol Insulin Detemir 30 unit 04/14/19 22:15 04/14/19 22:31 Levemir SUBCUT 30 unit BID ОЛЬГА Administration Ondansetron HCl 4 mg 04/14/19 22:05 Zofran IVPUSH Q4H PRN Nausea Discontinued Medications Generic Name Dose Route Start Last Admin Trade Name Freq PRN Reason Stop Dose Admin Sodium Chloride 1,000 mls @ 1,000 mls/hr 04/14/19 14:55 04/14/19 16:10 Normal Saline IV 04/14/19 15:54 1,000 mls/hr .Bolus ONE Administration Sodium Chloride 1,000 mls @ 1,000 mls/hr 04/14/19 20:00 04/14/19 20:12 Normal Saline IV 04/14/19 20:59 500 mls/hr .Bolus ONE Infusion Insulin Human Regular 6 unit 04/14/19 18:14 04/14/19 18:54 Novolin R IVPUSH 04/14/19 18:15 6 units ONETIME ONE Administration Protocol Ondansetron HCl 8 mg 04/14/19 14:55 04/14/19 17:07 Zofran IVPUSH 04/14/19 14:56 Not Given ONETIME ONE Ondansetron HCl 8 mg 04/14/19 15:43 04/14/19 15:49 Zofran Odt PO 04/14/19 15:44 8 mg ONETIME ONE Administration Departure - Departure Clinical Impression: Nausea & vomiting - Discharge Information Sepsis Event Note - Evaluation Sepsis Screening Result: No Definite Risk - Focused Exam Vital Signs: Vital Signs Temp Pulse Resp BP Pulse Ox 04/14/19 19:50 106 H 16 147/91 H 97 04/14/19 14:41 97.8 F 99 18 175/104 H 95 Date Exam was Performed: 04/14/19 Time Exam was Performed: 18:15 <Chapin Mtz - Last Filed: 04/15/19 01:27> ED HPI GENERAL MEDICAL PROBLEM - General Source of Information: Reports: Patient History Limitations: Reports: No Limitations - History of Present Illness Onset: Today Duration: Getting Worse ED ROS GENERAL - Review of Systems Review Of Systems: Comprehensive ROS is negative, except as noted in HPI. Constitutional: Reports: No Symptoms HEENT: Reports: No Symptoms Respiratory: Reports: No Symptoms Cardiovascular: Reports: No Symptoms Endocrine: Reports: No Symptoms GI/Abdominal: Reports: Abdominal Pain, Decreased Appetite, Nausea : Reports: No Symptoms Musculoskeletal: Reports: No Symptoms Skin: Reports: No Symptoms ED EXAM, GENERAL - Physical Exam Exam: See Below Exam Limited By: No Limitations General Appearance: Alert, WD/WN, No Apparent Distress Ears: Normal External Exam, Normal Canal, Hearing Grossly Normal, Normal TMs Nose: Normal Inspection, Normal Mucosa Throat/Mouth: Normal Inspection, Normal Lips, Normal Teeth, Normal Oropharynx, Normal Voice Head: Atraumatic, Normocephalic Neck: Normal Inspection Respiratory/Chest: No Respiratory Distress, Lungs Clear, No Accessory Muscle Use Cardiovascular: Normal Peripheral Pulses, Regular Rate, Rhythm, No Edema, No JVD , No Murmur, No Rub GI/Abdominal: Normal Bowel Sounds, Non-Tender, No Distention, No Abnormal Bruit , No Mass, Tender (Male) Exam: Deferred Rectal (Males) Exam: Deferred Back Exam: Normal Inspection, Full Range of Motion Extremities: Normal Inspection, Normal Range of Motion, Non-Tender, Normal Capillary Refill Neurological: Alert, Oriented, CN II-XII Intact, Normal Cognition, No Motor/ Sensory Deficits Psychiatric: Normal Affect, Normal Mood Skin Exam: Warm, Dry, Intact, Normal Color, No Rash Lymphatic: No Adenopathy Course - Vital Signs Text/Narrative:: Duration of the patient. The patient has had at least 2 L of fluids and is still nauseated and cannot hold anything down. Patient is a diabetic with a blood sugar initially at 476. Patient has received 6 units of insulin. Patient 's abdominal exam is negative patient is having no pain. Since the patient is not improving as far as his intake I think the patient would do well to be hydrated overnight. Patient will be admitted to holding with a diagnosi of Follows #1. Dehydration 2. diabetes [id number] . 3. Intractable vomiting Blood glucose is 316. Departure - Departure Time of Disposition: 01:26 Condition: Good Sepsis Event Note - Focused Exam Date Exam was Performed: 04/15/19 Time Exam was Performed: 01:24
--- NOTE | 2019-04-14 19:23 | CT ---
INDICATION: Vomiting. Abdominal pain. Leukocytosis. History of Crohn`s disease. Previous history of CVA with right-sided weakness. COMPARISON: 01/02/2018 TECHNIQUE: CT examination of the abdomen and pelvis was performed without contrast enhancement using 3 mm thick axial sections from the lung bases through the pubic symphysis. Oral contrast was not administered. Please note that all CT scans at this facility use dose modulation, iterative reconstruction, and/or weight-based dosing when appropriate to reduce radiation dose to as low as reasonably achievable. FINDINGS: In the abdomen, the unenhanced liver is not seen to be low in density compared to the spleen, with nothing seen that would indicate steatosis on the current exam. There is no sign of any hepatic mass. The spleen, pancreas, and adrenals are normal in appearance. The unenhanced kidneys are normal in appearance. Again seen are several calculi in the dependent portion of the gallbladder. There is a new floating calculus in the superior gallbladder fundus. The gallbladder is otherwise normal in appearance. The abdominal aorta is normal in caliber with no sign of dilatation. There is no sign of retroperitoneal mass or adenopathy. The stomach, loops of small bowel, and colon in the abdomen are normal in appearance. Again seen is hernia repair in the anterior superior right pelvic wall with no sign of recurrence of hernia. In the pelvis, the appendix is nonvisualized, but there is no sign of an inflammatory process in the area of the appendix. Again seen is mild soft tissue stranding adjacent to the terminal ileum in the right lower quadrant and right upper pelvis. This is consistent with previous inflammation. The loops of small bowel and colon in the pelvis are normal in appearance. The prostate is now mildly enlarged, measuring 4.7 centimeters in diameter, previously 3.9 centimeters. It is otherwise is otherwise normal in appearance. The urinary bladder is mildly distended and is otherwise normal in appearance. The previously seen moderate distension of the urinary bladder is no longer present. There is no sign of pelvic or inguinal mass or adenopathy. The lung bases are clear. Again seen is the old, healed fracture of the left lateral 10th rib. The rest of the osseous structures are normal in appearance for the patient`s age. IMPRESSION: Nothing seen that would explain the patient`s abdominal pain. No sign of deep-seated infection. Nothing seen to explain the patient`s vomiting. No sign of any inflammatory process in the area of the distal ileum, with stable mild scarring in the fat adjacent to the terminal ileum. No sign of distention of the stomach or small bowel. CT of the abdomen shows cholelithiasis with no sign of acute cholecystitis. The previously seen mild hepatic steatosis is no longer evident. CT of the pelvis shows new mild enlargement of the prostate of uncertain etiology. Resolution of previously seen moderate distension of the urinary bladder. Please note that all CT scans at this facility use dose modulation, iterative reconstruction, and/or weight-based dosing when appropriate to reduce radiation dose to as low as reasonably achievable. Dictated by Desean Boogie MD @ Apr 14 2019 7:09PM Signed by Dr. Desean Boogie @ Apr 14 2019 7:21PM
[2019-04-14] MEDS ORDERED: Ondansetron 4 MG/2 ML SDV IVPUSH PRN (22:05)
--- NOTE | 2019-04-14 22:09 | PCM.HP.2 ---
H&P History of Present Illness - General Date of Service: 04/14/19 Admit Problem/Dx: Admission Diagnosis/Problem Admission Diagnosis/Problem Dehydration - History of Present Illness Initial Comments - Free Text/Narative: 54 yo male with pmh of DM, HTN, CVA and questionable crohn's disease who presents with one day history of nausea and vomiting. PAtient also reports blood glucose has been higher than normal today. He was seen in the ED and evaluated with a CT scan of the abdomen which showed no acute disease. - Related Data Allergies/Adverse Reactions: Allergies Allergy/AdvReac Type Severity Reaction Status Date / Time No Known Allergies Allergy Verified 04/14/19 22:36 Home Medications: Home Meds metFORMIN [Glucophage] 1,000 mg PO BIDM 12/07/13 [History] Aspirin [Adult Low Dose Aspirin EC] 81 mg PO DAILY 07/08/18 [History] Insulin Detemir [Levemir Flextouch] 30 units SUBCUT BID 07/08/18 [History] Metoprolol Succinate 100 mg PO DAILY 07/08/18 [History] atorvaSTATin Calcium [Atorvastatin Calcium] 20 mg PO DAILY 07/08/18 [History] glipiZIDE [Glipizide ER] 5 mg PO DAILY 07/08/18 [History] Insulin Aspart [NovoLOG] 10 units SQ TID 01/02/19 [History] Past Medical History HEENT History: Reports: Impaired Vision Other HEENT History: wears glasses Cardiovascular History: Reports: High Cholesterol, Hypertension Respiratory History: Reports: None Gastrointestinal History: Reports: Other (See Below) Other Gastrointestinal History: crohns disease Genitourinary History: Reports: None Musculoskeletal History: Reports: Osteoarthritis Other Musculoskeletal History: 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 sided very little use of the arm, walks with cane Psychiatric History: Reports: None Endocrine/Metabolic History: Reports: Diabetes, Type II Hematologic History: Reports: None Immunologic History: Reports: None Oncologic (Cancer) History: Reports: None Dermatologic History: Reports: None - Infectious Disease History Infectious Disease History: Reports: Mumps Other Infectious Disease History: pt unable to verify - Past Surgical History Head Surgeries/Procedures: Reports: None Cardiovascular Surgical History: Reports: None Respiratory Surgical History: Reports: None GI Surgical History: Reports: Appendectomy, Colonoscopy, Hernia, Abdominal Other GI Surgeries/Procedures: abd hernia repair x3 Male Surgical History: Reports: None Endocrine Surgical History: Reports: None Neurological Surgical History: Reports: None Musculoskeletal Surgical History: Reports: Arthroscopic Knee Oncologic Surgical History: Reports: None Dermatological Surgical History: Reports: None Social & Family History - Family History Family Medical History: Noncontributory - Tobacco Use Smoking Status *Q: Former Smoker Used Tobacco, but Quit: Yes Month/Year Tobacco Last Used: 2017 - Caffeine Use Caffeine Use: Reports: Coffee - Recreational Drug Use Recreational Drug Use: No H&P Review of Systems - Review of Systems: Review Of Systems: Comprehensive ROS is negative, except as noted in HPI. Exam - Exam Exam: See Below - Vital Signs Vital Signs: Last Vital Signs Temp 36.9 C 04/14/19 21:20 Pulse 113 H 04/14/19 21:20 Resp 20 04/14/19 21:20 BP 145/87 H 04/14/19 21:20 Pulse Ox 96 04/14/19 21:20 Weight: 74.843 kg - Exam General: Alert, Oriented Lungs: Clear to Auscultation, Normal Respiratory Effort Cardiovascular: Regular Rate, Regular Rhythm GI/Abdominal Exam: Normal Bowel Sounds, Soft, Non-Tender, No Distention Extremities: Non-Tender, No Pedal Edema Skin: Warm, Dry, Intact - Patient Data Lab Results Last 24 hrs: Laboratory Results - last 24 hr 04/14/19 04/14/19 04/14/19 Range/Units 16:50 16:50 16:50 WBC 12.16 H (4.0-11.0) K/uL RBC 4.99 (4.50-5.90) M/uL Hgb 16.1 (13.0-17.0) g/dL Hct 43.3 (38.0-50.0) % MCV 86.8 (80.0-98.0) fL MCH 32.3 H (27.0-32.0) pg MCHC 37.2 H (31.0-37.0) g/dL RDW Std Deviation 40.3 (28.0-62.0) fl RDW Coeff of Nurys 13 (11.0-15.0) % Plt Count 178 (150-400) K/uL MPV 10.60 (7.40-12.00) fL Neut % (Auto) 90.5 H (48.0-80.0) % Lymph % (Auto) 6.2 L (16.0-40.0) % Foard % (Auto) 2.8 (0.0-15.0) % Eos % (Auto) 0.3 (0.0-7.0) % Baso % (Auto) 0.2 (0.0-1.5) % Neut # (Auto) 11.0 H (1.4-5.7) K/uL Lymph # (Auto) 0.8 (0.6-2.4) K/uL Foard # (Auto) 0.3 (0.0-0.8) K/uL Eos # (Auto) 0.0 (0.0-0.7) K/uL Baso # (Auto) 0.0 (0.0-0.1) K/uL Nucleated RBC % 0.0 /100WBC Nucleated RBCs # 0 K/uL ESR (0-19) mm/hr VBG pH (7.31-7.41) VBG pCO2 (35-45) mmHG VBG pO2 (30-40) mmHG VBG HCO3 (22-30) mEq/L VBG Total CO2 (41-51) mmol/L VBG Base Excess (-3.0-3.0) Lactate 2.4 H* (0.20-2.00) mmol/L Sodium 132 L (136-148) mmol/L Potassium 5.1 (3.5-5.1) mmol/L Chloride 95 L (98-107) mmol/L Carbon Dioxide 23.8 (21.0-32.0) mmol/L BUN 20 H (7.0-18.0) mg/dL Creatinine 1.1 (0.8-1.3) mg/dL Est Cr Clr Drug Dosing 80.32 mL/min Estimated GFR (MDRD) > 60.0 ml/min Glucose 472 H (74-106) mg/dL POC Glucose (60-110) mg/dL Calcium 9.7 (8.5-10.1) mg/dL Total Bilirubin 0.6 (0.2-1.0) mg/dL AST 19 (15-37) IU/L ALT 27 (14-63) IU/L Alkaline Phosphatase 136 H (46-116) U/L C-Reactive Protein <0.20 (0.00-0.90) mg/dL Total Protein 8.0 (6.4-8.2) g/dL Albumin 4.0 (3.4-5.0) g/dL Globulin 4.0 (2.6-4.0) g/dL Albumin/Globulin Ratio 1.0 (0.9-1.6) Lipase 112 (73-393) U/L 04/14/19 04/14/19 04/14/19 Range/Units 16:50 16:50 19:20 WBC (4.0-11.0) K/uL RBC (4.50-5.90) M/uL Hgb (13.0-17.0) g/dL Hct (38.0-50.0) % MCV (80.0-98.0) fL MCH (27.0-32.0) pg MCHC (31.0-37.0) g/dL RDW Std Deviation (28.0-62.0) fl RDW Coeff of Nurys (11.0-15.0) % Plt Count (150-400) K/uL MPV (7.40-12.00) fL Neut % (Auto) (48.0-80.0) % Lymph % (Auto) (16.0-40.0) % Foard % (Auto) (0.0-15.0) % Eos % (Auto) (0.0-7.0) % Baso % (Auto) (0.0-1.5) % Neut # (Auto) (1.4-5.7) K/uL Lymph # (Auto) (0.6-2.4) K/uL Foard # (Auto) (0.0-0.8) K/uL Eos # (Auto) (0.0-0.7) K/uL Baso # (Auto) (0.0-0.1) K/uL Nucleated RBC % /100WBC Nucleated RBCs # K/uL ESR 30 H (0-19) mm/hr VBG pH 7.34 (7.31-7.41) VBG pCO2 50 H (35-45) mmHG VBG pO2 35 (30-40) mmHG VBG HCO3 27 (22-30) mEq/L VBG Total CO2 24 L (41-51) mmol/L VBG Base Excess -0.2 (-3.0-3.0) Lactate 2.3 H* (0.20-2.00) mmol/L Sodium (136-148) mmol/L Potassium (3.5-5.1) mmol/L Chloride (98-107) mmol/L Carbon Dioxide (21.0-32.0) mmol/L BUN (7.0-18.0) mg/dL Creatinine (0.8-1.3) mg/dL Est Cr Clr Drug Dosing mL/min Estimated GFR (MDRD) ml/min Glucose (74-106) mg/dL POC Glucose (60-110) mg/dL Calcium (8.5-10.1) mg/dL Total Bilirubin (0.2-1.0) mg/dL AST (15-37) IU/L ALT (14-63) IU/L Alkaline Phosphatase (46-116) U/L C-Reactive Protein (0.00-0.90) mg/dL Total Protein (6.4-8.2) g/dL Albumin (3.4-5.0) g/dL Globulin (2.6-4.0) g/dL Albumin/Globulin Ratio (0.9-1.6) Lipase (73-393) U/L 04/14/19 Range/Units 19:58 WBC (4.0-11.0) K/uL RBC (4.50-5.90) M/uL Hgb (13.0-17.0) g/dL Hct (38.0-50.0) % MCV (80.0-98.0) fL MCH (27.0-32.0) pg MCHC (31.0-37.0) g/dL RDW Std Deviation (28.0-62.0) fl RDW Coeff of Nurys (11.0-15.0) % Plt Count (150-400) K/uL MPV (7.40-12.00) fL Neut % (Auto) (48.0-80.0) % Lymph % (Auto) (16.0-40.0) % Foard % (Auto) (0.0-15.0) % Eos % (Auto) (0.0-7.0) % Baso % (Auto) (0.0-1.5) % Neut # (Auto) (1.4-5.7) K/uL Lymph # (Auto) (0.6-2.4) K/uL Foard # (Auto) (0.0-0.8) K/uL Eos # (Auto) (0.0-0.7) K/uL Baso # (Auto) (0.0-0.1) K/uL Nucleated RBC % /100WBC Nucleated RBCs # K/uL ESR (0-19) mm/hr VBG pH (7.31-7.41) VBG pCO2 (35-45) mmHG VBG pO2 (30-40) mmHG VBG HCO3 (22-30) mEq/L VBG Total CO2 (41-51) mmol/L VBG Base Excess (-3.0-3.0) Lactate (0.20-2.00) mmol/L Sodium (136-148) mmol/L Potassium (3.5-5.1) mmol/L Chloride (98-107) mmol/L Carbon Dioxide (21.0-32.0) mmol/L BUN (7.0-18.0) mg/dL Creatinine (0.8-1.3) mg/dL Est Cr Clr Drug Dosing mL/min Estimated GFR (MDRD) ml/min Glucose (74-106) mg/dL POC Glucose 316 H (60-110) mg/dL Calcium (8.5-10.1) mg/dL Total Bilirubin (0.2-1.0) mg/dL AST (15-37) IU/L ALT (14-63) IU/L Alkaline Phosphatase (46-116) U/L C-Reactive Protein (0.00-0.90) mg/dL Total Protein (6.4-8.2) g/dL Albumin (3.4-5.0) g/dL Globulin (2.6-4.0) g/dL Albumin/Globulin Ratio (0.9-1.6) Lipase (73-393) U/L Result Diagrams: 04/15/19 07:15 04/15/19 07:15 Uzair Results Last 24 hrs: Microbiology 04/14/19 17:00 Influenza Type A Antigen Screen - Final Nasopharyngeal Swab NEGATIVE INFLUENZA A VIRUS AG REFERENCE RANGE: NEGATIVE Influenza Type B Antigen Screen - Final NEGATIVE INFLUENZA B VIRUS AG REFERENCE RANGE: NEGATIVE Sepsis Event Note - Evaluation Sepsis Screening Result: No Definite Risk - Focused Exam Vital Signs: Vital Signs Temp Pulse Resp BP Pulse Ox 04/14/19 21:20 36.9 C 113 H 20 145/87 H 96 04/14/19 19:50 106 H 16 147/91 H 97 04/14/19 14:41 36.6 C 99 18 175/104 H 95 Date Exam was Performed: 04/15/19 Time Exam was Performed: 13:10 Problem List Initiated/Reviewed/Updated: Yes Orders Last 24hrs: Active Orders 24 hr Category Date Time Status Admission Status [Patient Status] [ADT] Stat ADT 04/14/19 20:02 Active Antiembolic Devices [RC] PER UNIT ROUTINE Care 04/14/19 22:06 Ordered Communication Order [RC] ROUTINE Care 04/14/19 18:10 Active Oxygen Therapy [RC] PRN Care 04/14/19 22:05 Ordered Up ad Laisha [RC] ASDIRECTED Care 04/14/19 22:05 Ordered VTE/DVT Education [RC] PER UNIT ROUTINE Care 04/14/19 22:05 Ordered Vital Signs [RC] Q4H Care 04/14/19 22:05 Ordered [employer] Diet [DIET] Diet 04/14/19 Breakfast Ordered Clear Liquid Diet [DIET] Diet 04/14/19 Breakfast Ordered BASIC METABOLIC PANEL,BMP [CHEM] AM Lab 04/15/19 05:11 Ordered CBC WITH AUTO DIFF [HEME] AM Lab 04/15/19 05:11 Ordered LACTIC ACID,WHOLE BLOOD [BG] Q6H Lab 04/15/19 01:00 Ordered LACTIC ACID,WHOLE BLOOD [BG] Q6H Lab 04/15/19 07:00 Ordered Insulin Aspart [NovoLOG] Med 04/15/19 07:30 Ordered See Protocol SUBCUT ACBREAKFASTANDBED Insulin Detemir [Levemir] Med 04/14/19 22:15 Ordered 30 unit SUBCUT BID Ondansetron [Zofran] Med 04/14/19 22:05 Ordered 4 mg IVPUSH Q4H PRN Sequential Compression Device [OM.PC] Per Unit Routine Oth 04/14/19 22:05 Ordered Resuscitation Status Routine Resus Stat 04/14/19 22:05 Ordered Medication Orders Insulin Aspart (Novolog) 0 unit SUBCUT ACBREAKFASTANDBED ОЛЬГА; Protocol Insulin Detemir (Levemir) 30 unit SUBCUT BID ОЛЬГА Assessment/Plan Comment:: 54 yo male admitted for gastroenteritis. We will treat with IV fluids and antiemetics. Will monitor blood sugars and treat with subcu insulin.
[2019-04-14] MEDS: Sodium Chloride 0.9% 1,000 ML IV SCH (22:26)
[2019-04-14] MEDS: Insulin Detemir 100 Units/ML 3 ML Pen SUBCUT SCH (22:31)
[2019-04-15] MEDS: Sodium Chloride 0.9% 1,000 ML IV SCH ×2 (05:13→12:00)
[2019-04-15] MEDS ORDERED: Insulin Aspart 100 Units/ML 3 ML Pen SUBCUT SCH (07:30)
[2019-04-15 07:43] LABS: BLOOD UREA NITROGEN,BUN 15 mg/dL (7.0-18.0); CARBON DIOXIDE,CO2 27.9 mmol/L (21.0-32.0); CHLORIDE,CL 104 mmol/L (98-107); GLUCOSE RANDOM 166 mg/dL (74-106); POTASSIUM,K 3.5 mmol/L (3.5-5.1); SODIUM,NA 139 mmol/L (136-148)
[2019-04-15] MEDS: Insulin Detemir 100 Units/ML 3 ML Pen SUBCUT SCH (09:55)
[2019-04-15 11:32] VITALS: BP 135/77; PULSE 99
--- NOTE | 2019-04-15 13:10 | PCM.DCSUM1 ---
Discharge Summary - Discharge Data Discharge Date: 04/15/19 Discharge Disposition: Home, Self-Care 01 Condition: Good - Referral to Home Health Primary Care Physician: PCP None - Patient Summary/Data Hospital Course: 54 yo male with pmh of DM, HTN, CVA and questionable Crohn's disease who was admitted for gastroenteritis. He presented with one day history of nausea and vomiting. His laboratory values were significant for a WBC of 12,000 and blood glucose of 472. CT scan of the abdomen which showed no acute disease. He was treated with IV fluids and antiemetics. He was given subcu insulin for his hyperglycemia. This morning he tolerated his breakfast and lunch and was requesting discharge home. He was discharged home to have follow up with [facility]. - Patient Instructions Diet: Diabetic Diet - Discharge Plan Home Medications: Home Meds metFORMIN [Glucophage] 1,000 mg PO BIDM 12/07/13 [History] Aspirin [Adult Low Dose Aspirin EC] 81 mg PO DAILY 07/08/18 [History] Insulin Detemir [Levemir Flextouch] 30 units SUBCUT BID 07/08/18 [History] Metoprolol Succinate 100 mg PO DAILY 07/08/18 [History] atorvaSTATin Calcium [Atorvastatin Calcium] 20 mg PO DAILY 07/08/18 [History] glipiZIDE [Glipizide ER] 5 mg PO DAILY 07/08/18 [History] Insulin Aspart [NovoLOG] 10 units SQ TID 01/02/19 [History] Forms: ED Department Discharge Referrals: PCP,None [Primary Care Provider] - - Discharge Summary/Plan Comment DC Time >30 min.: No - Patient Data Vitals - Most Recent: Last Vital Signs Temp 36.5 C 04/15/19 11:00 Pulse 99 04/15/19 11:00 Resp 18 04/15/19 11:00 BP 135/77 04/15/19 11:00 Pulse Ox 97 04/15/19 11:00 Weight - Most Recent: 76.566 kg I&O - Last 24 hours: Intake & Output 04/14/19 04/15/19 04/15/19 22:59 06:59 14:59 Intake Total 1327 Output Total 200 Balance 1127 Lab Results - Last 24 hrs: Laboratory Results - last 24 hr 12/31/19 12/31/19 12/31/19 Range/Units 16:50 16:50 16:50 WBC 12.16 H (4.0-11.0) K/uL RBC 4.99 (4.50-5.90) M/uL Hgb 16.1 (13.0-17.0) g/dL Hct 43.3 (38.0-50.0) % MCV 86.8 (80.0-98.0) fL MCH 32.3 H (27.0-32.0) pg MCHC 37.2 H (31.0-37.0) g/dL RDW Std Deviation 40.3 (28.0-62.0) fl RDW Coeff of Nurys 13 (11.0-15.0) % Plt Count 178 (150-400) K/uL MPV 10.60 (7.40-12.00) fL Neut % (Auto) 90.5 H (48.0-80.0) % Lymph % (Auto) 6.2 L (16.0-40.0) % Martin % (Auto) 2.8 (0.0-15.0) % Eos % (Auto) 0.3 (0.0-7.0) % Baso % (Auto) 0.2 (0.0-1.5) % Neut # (Auto) 11.0 H (1.4-5.7) K/uL Lymph # (Auto) 0.8 (0.6-2.4) K/uL Martin # (Auto) 0.3 (0.0-0.8) K/uL Eos # (Auto) 0.0 (0.0-0.7) K/uL Baso # (Auto) 0.0 (0.0-0.1) K/uL Nucleated RBC % 0.0 /100WBC Nucleated RBCs # 0 K/uL ESR (0-19) mm/hr VBG pH (7.31-7.41) VBG pCO2 (35-45) mmHG VBG pO2 (30-40) mmHG VBG HCO3 (22-30) mEq/L VBG Total CO2 (41-51) mmol/L VBG Base Excess (-3.0-3.0) Lactate 2.4 H* (0.20-2.00) mmol/L Sodium 132 L (136-148) mmol/L Potassium 5.1 (3.5-5.1) mmol/L Chloride 95 L (98-107) mmol/L Carbon Dioxide 23.8 (21.0-32.0) mmol/L BUN 20 H (7.0-18.0) mg/dL Creatinine 1.1 (0.8-1.3) mg/dL Est Cr Clr Drug Dosing 80.32 mL/min Estimated GFR (MDRD) > 60.0 ml/min Glucose 472 H (74-106) mg/dL POC Glucose (60-110) mg/dL Calcium 9.7 (8.5-10.1) mg/dL Total Bilirubin 0.6 (0.2-1.0) mg/dL AST 19 (15-37) IU/L ALT 27 (14-63) IU/L Alkaline Phosphatase 136 H (46-116) U/L C-Reactive Protein <0.20 (0.00-0.90) mg/dL Total Protein 8.0 (6.4-8.2) g/dL Albumin 4.0 (3.4-5.0) g/dL Globulin 4.0 (2.6-4.0) g/dL Albumin/Globulin Ratio 1.0 (0.9-1.6) Lipase 112 (73-393) U/L 04/14/19 04/14/19 04/14/19 Range/Units 16:50 16:50 19:20 WBC (4.0-11.0) K/uL RBC (4.50-5.90) M/uL Hgb (13.0-17.0) g/dL Hct (38.0-50.0) % MCV (80.0-98.0) fL MCH (27.0-32.0) pg MCHC (31.0-37.0) g/dL RDW Std Deviation (28.0-62.0) fl RDW Coeff of Nurys (11.0-15.0) % Plt Count (150-400) K/uL MPV (7.40-12.00) fL Neut % (Auto) (48.0-80.0) % Lymph % (Auto) (16.0-40.0) % Martin % (Auto) (0.0-15.0) % Eos % (Auto) (0.0-7.0) % Baso % (Auto) (0.0-1.5) % Neut # (Auto) (1.4-5.7) K/uL Lymph # (Auto) (0.6-2.4) K/uL Martin # (Auto) (0.0-0.8) K/uL Eos # (Auto) (0.0-0.7) K/uL Baso # (Auto) (0.0-0.1) K/uL Nucleated RBC % /100WBC Nucleated RBCs # K/uL ESR 30 H (0-19) mm/hr VBG pH 7.34 (7.31-7.41) VBG pCO2 50 H (35-45) mmHG VBG pO2 35 (30-40) mmHG VBG HCO3 27 (22-30) mEq/L VBG Total CO2 24 L (41-51) mmol/L VBG Base Excess -0.2 (-3.0-3.0) Lactate 2.3 H* (0.20-2.00) mmol/L Sodium (136-148) mmol/L Potassium (3.5-5.1) mmol/L Chloride (98-107) mmol/L Carbon Dioxide (21.0-32.0) mmol/L BUN (7.0-18.0) mg/dL Creatinine (0.8-1.3) mg/dL Est Cr Clr Drug Dosing mL/min Estimated GFR (MDRD) ml/min Glucose (74-106) mg/dL POC Glucose (60-110) mg/dL Calcium (8.5-10.1) mg/dL Total Bilirubin (0.2-1.0) mg/dL AST (15-37) IU/L ALT (14-63) IU/L Alkaline Phosphatase (46-116) U/L C-Reactive Protein (0.00-0.90) mg/dL Total Protein (6.4-8.2) g/dL Albumin (3.4-5.0) g/dL Globulin (2.6-4.0) g/dL Albumin/Globulin Ratio (0.9-1.6) Lipase (73-393) U/L 04/14/19 04/14/19 04/15/19 Range/Units 19:58 22:30 01:00 WBC (4.0-11.0) K/uL RBC (4.50-5.90) M/uL Hgb (13.0-17.0) g/dL Hct (38.0-50.0) % MCV (80.0-98.0) fL MCH (27.0-32.0) pg MCHC (31.0-37.0) g/dL RDW Std Deviation (28.0-62.0) fl RDW Coeff of Nurys (11.0-15.0) % Plt Count (150-400) K/uL MPV (7.40-12.00) fL Neut % (Auto) (48.0-80.0) % Lymph % (Auto) (16.0-40.0) % Martin % (Auto) (0.0-15.0) % Eos % (Auto) (0.0-7.0) % Baso % (Auto) (0.0-1.5) % Neut # (Auto) (1.4-5.7) K/uL Lymph # (Auto) (0.6-2.4) K/uL Martin # (Auto) (0.0-0.8) K/uL Eos # (Auto) (0.0-0.7) K/uL Baso # (Auto) (0.0-0.1) K/uL Nucleated RBC % /100WBC Nucleated RBCs # K/uL ESR (0-19) mm/hr VBG pH (7.31-7.41) VBG pCO2 (35-45) mmHG VBG pO2 (30-40) mmHG VBG HCO3 (22-30) mEq/L VBG Total CO2 (41-51) mmol/L VBG Base Excess (-3.0-3.0) Lactate 1.5 (0.20-2.00) mmol/L Sodium (136-148) mmol/L Potassium (3.5-5.1) mmol/L Chloride (98-107) mmol/L Carbon Dioxide (21.0-32.0) mmol/L BUN (7.0-18.0) mg/dL Creatinine (0.8-1.3) mg/dL Est Cr Clr Drug Dosing mL/min Estimated GFR (MDRD) ml/min Glucose (74-106) mg/dL POC Glucose 316 H 327 H (60-110) mg/dL Calcium (8.5-10.1) mg/dL Total Bilirubin (0.2-1.0) mg/dL AST (15-37) IU/L ALT (14-63) IU/L Alkaline Phosphatase (46-116) U/L C-Reactive Protein (0.00-0.90) mg/dL Total Protein (6.4-8.2) g/dL Albumin (3.4-5.0) g/dL Globulin (2.6-4.0) g/dL Albumin/Globulin Ratio (0.9-1.6) Lipase (73-393) U/L 04/15/19 04/15/19 04/15/19 Range/Units 06:14 07:15 07:15 WBC 7.07 (4.0-11.0) K/uL RBC 4.01 L (4.50-5.90) M/uL Hgb 12.9 L (13.0-17.0) g/dL Hct 35.0 L (38.0-50.0) % MCV 87.3 (80.0-98.0) fL MCH 32.2 H (27.0-32.0) pg MCHC 36.9 (31.0-37.0) g/dL RDW Std Deviation 40.4 (28.0-62.0) fl RDW Coeff of Nurys 13 (11.0-15.0) % Plt Count 170 (150-400) K/uL MPV 10.00 (7.40-12.00) fL Neut % (Auto) 66.5 (48.0-80.0) % Lymph % (Auto) 23.9 (16.0-40.0) % Martin % (Auto) 7.5 (0.0-15.0) % Eos % (Auto) 1.8 (0.0-7.0) % Baso % (Auto) 0.3 (0.0-1.5) % Neut # (Auto) 4.7 (1.4-5.7) K/uL Lymph # (Auto) 1.7 (0.6-2.4) K/uL Martin # (Auto) 0.5 (0.0-0.8) K/uL Eos # (Auto) 0.1 (0.0-0.7) K/uL Baso # (Auto) 0.0 (0.0-0.1) K/uL Nucleated RBC % 0.0 /100WBC Nucleated RBCs # 0 K/uL ESR (0-19) mm/hr VBG pH (7.31-7.41) VBG pCO2 (35-45) mmHG VBG pO2 (30-40) mmHG VBG HCO3 (22-30) mEq/L VBG Total CO2 (41-51) mmol/L VBG Base Excess (-3.0-3.0) Lactate 1.1 (0.20-2.00) mmol/L Sodium (136-148) mmol/L Potassium (3.5-5.1) mmol/L Chloride (98-107) mmol/L Carbon Dioxide (21.0-32.0) mmol/L BUN (7.0-18.0) mg/dL Creatinine (0.8-1.3) mg/dL Est Cr Clr Drug Dosing mL/min Estimated GFR (MDRD) ml/min Glucose (74-106) mg/dL POC Glucose 143 H (60-110) mg/dL Calcium (8.5-10.1) mg/dL Total Bilirubin (0.2-1.0) mg/dL AST (15-37) IU/L ALT (14-63) IU/L Alkaline Phosphatase (46-116) U/L C-Reactive Protein (0.00-0.90) mg/dL Total Protein (6.4-8.2) g/dL Albumin (3.4-5.0) g/dL Globulin (2.6-4.0) g/dL Albumin/Globulin Ratio (0.9-1.6) Lipase (73-393) U/L 04/15/19 04/15/19 04/15/19 Range/Units 07:15 09:53 11:30 WBC (4.0-11.0) K/uL RBC (4.50-5.90) M/uL Hgb (13.0-17.0) g/dL Hct (38.0-50.0) % MCV (80.0-98.0) fL MCH (27.0-32.0) pg MCHC (31.0-37.0) g/dL RDW Std Deviation (28.0-62.0) fl RDW Coeff of Nurys (11.0-15.0) % Plt Count (150-400) K/uL MPV (7.40-12.00) fL Neut % (Auto) (48.0-80.0) % Lymph % (Auto) (16.0-40.0) % Martin % (Auto) (0.0-15.0) % Eos % (Auto) (0.0-7.0) % Baso % (Auto) (0.0-1.5) % Neut # (Auto) (1.4-5.7) K/uL Lymph # (Auto) (0.6-2.4) K/uL Martin # (Auto) (0.0-0.8) K/uL Eos # (Auto) (0.0-0.7) K/uL Baso # (Auto) (0.0-0.1) K/uL Nucleated RBC % /100WBC Nucleated RBCs # K/uL ESR (0-19) mm/hr VBG pH (7.31-7.41) VBG pCO2 (35-45) mmHG VBG pO2 (30-40) mmHG VBG HCO3 (22-30) mEq/L VBG Total CO2 (41-51) mmol/L VBG Base Excess (-3.0-3.0) Lactate (0.20-2.00) mmol/L Sodium 139 (136-148) mmol/L Potassium 3.5 (3.5-5.1) mmol/L Chloride 104 (98-107) mmol/L Carbon Dioxide 27.9 (21.0-32.0) mmol/L BUN 15 (7.0-18.0) mg/dL Creatinine 0.9 (0.8-1.3) mg/dL Est Cr Clr Drug Dosing 100.43 mL/min Estimated GFR (MDRD) > 60.0 ml/min Glucose 166 H (74-106) mg/dL POC Glucose 162 H 237 H (60-110) mg/dL Calcium 8.2 L (8.5-10.1) mg/dL Total Bilirubin (0.2-1.0) mg/dL AST (15-37) IU/L ALT (14-63) IU/L Alkaline Phosphatase (46-116) U/L C-Reactive Protein (0.00-0.90) mg/dL Total Protein (6.4-8.2) g/dL Albumin (3.4-5.0) g/dL Globulin (2.6-4.0) g/dL Albumin/Globulin Ratio (0.9-1.6) Lipase (73-393) U/L ROSLYN Results - Last 24 hrs: Microbiology 04/14/19 17:00 Influenza Type A Antigen Screen - Final Nasopharyngeal Swab NEGATIVE INFLUENZA A VIRUS AG REFERENCE RANGE: NEGATIVE Influenza Type B Antigen Screen - Final NEGATIVE INFLUENZA B VIRUS AG REFERENCE RANGE: NEGATIVE Med Orders - Current: Current Medications Sodium Chloride (Normal Saline) 1,000 mls @ 150 mls/hr IV ASDIRECTED [facility] Last Admin: 04/15/19 12:00 Dose: 150 mls/hr Insulin Aspart (Novolog) 0 unit SUBCUT ACBREAKFASTANDBED [facility]; Protocol Last Admin: 04/15/19 08:05 Dose: Not Given Insulin Detemir (Levemir) 30 unit SUBCUT BID [facility] Last Admin: 04/15/19 09:55 Dose: 30 unit Ondansetron HCl (Zofran) 4 mg IVPUSH Q4H PRN PRN Reason: Nausea Discontinued Medications Sodium Chloride (Normal Saline) 1,000 mls @ 1,000 mls/hr IV .Bolus ONE Stop: 04/14/19 15:54 Last Admin: 04/14/19 16:10 Dose: 1,000 mls/hr Sodium Chloride (Normal Saline) 1,000 mls @ 1,000 mls/hr IV .Bolus ONE Stop: 04/14/19 20:59 Last Infusion: 04/14/19 20:12 Dose: 500 mls/hr Insulin Human Regular (Novolin R) 6 unit IVPUSH ONETIME ONE; Protocol Stop: 04/14/19 18:15 Last Admin: 04/14/19 18:54 Dose: 6 units Ondansetron HCl (Zofran) 8 mg IVPUSH ONETIME ONE Stop: 04/14/19 14:56 Last Admin: 04/14/19 17:07 Dose: Not Given Ondansetron HCl (Zofran Odt) 8 mg PO ONETIME ONE Stop: 04/14/19 15:44 Last Admin: 04/14/19 15:49 Dose: 8 mg
== END 2019-04-15 15:15 | disposition home or self-care (01) ==
LOC: MW.ED 14:19 → MW.MS 20:02
PROVIDERS: ADMIT Internal Medicine; ATTEND Internal Medicine
DX: K52.9 Noninfective gastroenteritis and colitis, unspecified (principal); I10 Essential (primary) hypertension; E11.65 Type 2 diabetes mellitus with hyperglycemia; E78.00 Pure hypercholesterolemia, unspecified; M19.90 Unspecified osteoarthritis, unspecified site; Z87.891 Personal history of nicotine dependence; Z79.84 Long term (current) use of oral hypoglycemic drugs; Z79.82 Long term (current) use of aspirin; Z79.4 Long term (current) use of insulin; Z79.899 Other long term (current) drug therapy
CPT/HCPCS: 36415; 74176; 80048; 80053; 82803; 82962; 83605; 83690; 85025; 85652; 86140; 87804; A9270; J1815; J7030; 99283

== ENCOUNTER 2019-10-03 19:15 | Emergency (ER) | payer OTHER ==
[2019-10-03] MEDS ORDERED: Diphtheria,Pertussis(Acell),Tetanus Vaccine 0.5 ML Syringe IM ONE (19:33)
[2019-10-03] MEDS ORDERED: Acetaminophen 325 MG Tab PO ONE (19:34)
[2019-10-03] MEDS ORDERED: Lactated Ringers 1,000 ML IV ONE (19:36)
[2019-10-03] MEDS ORDERED: Metoprolol Tartrate 5 MG/5 ML SDV IVPUSH ONE (19:38)
--- NOTE | 2019-10-03 19:38 | EDM.PDOC ---
ED HPI GENERAL MEDICAL PROBLEM - General Chief Complaint: Head Injury Stated Complaint: HEAD INJURY Time Seen by Provider: 10/03/19 19:26 Source of Information: Reports: Patient, EMS History Limitations: Reports: No Limitations - History of Present Illness INITIAL COMMENTS - FREE TEXT/NARRATIVE: 54-year-old male with history of CVA, hypertension and diabetes presents with facial injury after tripping and falling at [facility] just prior to arrival. He denies LOC. He landed on his face and has lacerations to his nose and his face. He denies neck pain. He is noncompliant with his medications for diabetes and high blood pressure, EMS recorded Accu-Chek = 452. His tetanus is not up-to-date. He denies chest pain, abdominal pain, shortness of breath, back pain, pelvic pain. ROS: A 10-point review of systems, other than pertinent positives and negatives as stated per HPI, is otherwise negative PHYSICAL EXAM General: AOx4, GCS = 15, No distress HEENT: dry mucous membrane, 2.8 cm laceration to the left frontalis, 1 cm laceration to the nasal bridge, no loose dentition. Neck: supple, no meningismus, no Kernig or Brudzinski Cardiac: S1S2 RRR Respiratory: CTAB, no crackles or rales, no wheezing Abdomen: Soft, nontender, no rebound or guarding, nondistended, no pulsatile mass. Back: nontender Musculoskeletal: NVI distally, no deformity Neuro: No focal deficits Psych: no SI. MEDICAL DECISION MAKING: I reviewed the patients past medical records, lab and radiographic findings. I discussed the case with family members. My differential diagnosis included: Facial fracture, laceration, CVA, ICH. Patient's first EKG did not show a STEMI, it did show poor R wave progression only. His troponin then resulted at 0.214, I repeat EKG was promptly performed, demonstrating now a STEMI that has evolved, I repeated one for confirmation and it is consistent with a STEMI. Patient was given 324 mg aspirin, however fibrinolysis was withheld due to recent trauma to his face less than 3 months, which is an absol amira contraindication for fibrinolysis. His facial laceration repair are deferred due to need for emergent transfer. generalized Pain Score (Numeric/FACES): 2 - Related Data Allergies Allergy/AdvReac Type Severity Reaction Status Date / Time No Known Allergies Allergy Verified 04/14/19 22:36 Home Meds: Home Meds metFORMIN [Glucophage] 1,000 mg PO BIDM 12/07/13 [History] Aspirin [Adult Low Dose Aspirin EC] 81 mg PO DAILY 07/08/18 [History] Insulin Detemir [Levemir Flextouch] 30 units SUBCUT BID 07/08/18 [History] Metoprolol Succinate 100 mg PO DAILY 07/08/18 [History] atorvaSTATin Calcium [Atorvastatin Calcium] 20 mg PO DAILY 07/08/18 [History] glipiZIDE [Glipizide ER] 5 mg PO DAILY 07/08/18 [History] Insulin Aspart [NovoLOG] 10 units SQ TID 01/02/19 [History] Past Medical History HEENT History: Reports: Impaired Vision Other HEENT History: wears glasses Cardiovascular History: Reports: High Cholesterol, Hypertension Respiratory History: Reports: None Gastrointestinal History: Reports: Other (See Below) Other Gastrointestinal History: crohns disease Genitourinary History: Reports: None Musculoskeletal History: Reports: Osteoarthritis Other Musculoskeletal History: 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 sided very little use of the arm, walks with cane Psychiatric History: Reports: None Endocrine/Metabolic History: Reports: Diabetes, Type II Hematologic History: Reports: None Immunologic History: Reports: None Oncologic (Cancer) History: Reports: None Dermatologic History: Reports: None - Infectious Disease History Infectious Disease History: Reports: Mumps Other Infectious Disease History: pt unable to verify - Past Surgical History Head Surgeries/Procedures: Reports: None Cardiovascular Surgical History: Reports: None Respiratory Surgical History: Reports: None GI Surgical History: Reports: Appendectomy, Colonoscopy, Hernia, Abdominal Other GI Surgeries/Procedures: abd hernia repair x3 Male Surgical History: Reports: None Endocrine Surgical History: Reports: None Neurological Surgical History: Reports: None Musculoskeletal Surgical History: Reports: Arthroscopic Knee Oncologic Surgical History: Reports: None Dermatological Surgical History: Reports: None Social & Family History - Family History Family Medical History: Noncontributory - Tobacco Use Smoking Status *Q: Former Smoker Used Tobacco, but Quit: Yes Month/Year Tobacco Last Used: 2017 - Caffeine Use Caffeine Use: Reports: Coffee - Recreational Drug Use Recreational Drug Use: No ED ROS GENERAL - Review of Systems Review Of Systems: See Below ED EXAM, HEAD INJURY - Physical Exam Exam: See Below EKG INTERPRETATION EKG Interpretation Comments: EKG #1: 98 Bpm, NSR, poor R wave progression, normal QRS interval, no STEMI. EKG and rhythm strip interpreted by me at 1928 EKG #2: 96 Bpm, NSR, normal QRS interval, STEMI in II/III/AVF, V4-V6. EKG and rhythm strip interpreted by me at 2045 EKG #3: 94 Bpm, NSR, normal QRS interval, STEMI in III, AVF, V5-V6. EKG and rhythm strip interpreted by me at 2054 Course - Vital Signs Last Recorded V/S: Last Vital Signs Temp 97.5 F 10/03/19 19:23 Pulse 97 10/03/19 20:57 Resp 16 10/03/19 20:57 BP 167/99 H 10/03/19 20:57 Pulse Ox 97 10/03/19 20:57 - Orders/Labs/Meds Orders: Active Orders 24 hr Category Date Time Status Communication Order [RC] STAT Care 10/03/19 19:36 Active Vaccines to be Administered [RC] PER UNIT ROUTINE Care 10/03/19 19:34 Active Labs: Laboratory Tests 10/03/19 10/03/19 Range/Units 20:05 20:05 WBC 6.87 (4.0-11.0) K/uL RBC 4.89 (4.50-5.90) M/uL Hgb 15.4 (13.0-17.0) g/dL Hct 42.1 (38.0-50.0) % MCV 86.1 (80.0-98.0) fL MCH 31.5 (27.0-32.0) pg MCHC 36.6 (31.0-37.0) g/dL RDW Std Deviation 40.2 (28.0-62.0) fl RDW Coeff of Nurys 13 (11.0-15.0) % Plt Count 207 (150-400) K/uL MPV 10.10 (7.40-12.00) fL Neut % (Auto) 71.3 (48.0-80.0) % Lymph % (Auto) 20.7 (16.0-40.0) % [place] % (Auto) 5.7 (0.0-15.0) % Eos % (Auto) 2.0 (0.0-7.0) % Baso % (Auto) 0.3 (0.0-1.5) % Neut # (Auto) 4.9 (1.4-5.7) K/uL Lymph # (Auto) 1.4 (0.6-2.4) K/uL [place] # (Auto) 0.4 (0.0-0.8) K/uL Eos # (Auto) 0.1 (0.0-0.7) K/uL Baso # (Auto) 0.0 (0.0-0.1) K/uL Nucleated RBC % 0.0 /100WBC Nucleated RBCs # 0 K/uL Sodium 135 L (136-148) mmol/L Potassium 3.9 (3.5-5.1) mmol/L Chloride 97 L (98-107) mmol/L Carbon Dioxide 27.2 (21.0-32.0) mmol/L BUN 16 (7.0-18.0) mg/dL Creatinine 1.2 (0.8-1.3) mg/dL Est Cr Clr Drug Dosing 73.63 mL/min Estimated GFR (MDRD) > 60.0 ml/min Glucose 445 H (74-106) mg/dL Calcium 9.8 (8.5-10.1) mg/dL Total Bilirubin 0.7 (0.2-1.0) mg/dL AST 13 L (15-37) IU/L ALT 17 (14-63) IU/L Alkaline Phosphatase 137 H (46-116) U/L Troponin I 0.214 H* (0.000-0.056) ng/mL Total Protein 7.9 (6.4-8.2) g/dL Albumin 4.2 (3.4-5.0) g/dL Globulin 3.7 (2.6-4.0) g/dL Albumin/Globulin Ratio 1.1 (0.9-1.6) Meds: Medications Discontinued Medications Generic Name Dose Route Start Last Admin Trade Name Carlo PRN Reason Stop Dose Admin Acetaminophen 325 mg 10/03/19 19:34 10/03/19 20:54 Tylenol PO 10/03/19 19:35 325 mg NOW ONE Administration Aspirin 324 mg 10/03/19 20:48 10/03/19 21:00 Aspirin PO 10/03/19 20:49 324 mg ONETIME ONE Administration Diphtheria/Tetanus/Acell Pertussis 0.5 ml 10/03/19 19:33 10/03/19 20:52 Adacel IM 10/03/19 19:34 0.5 ml .ONCE ONE Administration Lactated Ringer's 1,000 mls @ 999 mls/hr 10/03/19 19:36 10/03/19 20:45 Ringers, Lactated IV 10/03/19 20:36 999 mls/hr .BOLUS ONE Administration Metoprolol Tartrate 5 mg 10/03/19 19:38 10/03/19 20:45 Lopressor IVPUSH 10/03/19 19:39 5 mg ONETIME ONE Administration - Re-Assessments/Exams Free Text/Narrative Re-Assessment/Exam: 10/03/19 19:39 Ordered IV fluids 1 L and metoprolol 5 mg IV, Adacel IM. 10/03/19 20:48 Troponin resulted elevated, will repeat EKG. He is given aspirin 324 mg p.o. after no bleeding found on CT. 10/03/19 20:49 I discussed with the hospitalist regarding the need for admission, they recommended transfer to outside facility due to need for higher level of care not available at this facility, and the need for senior science consultant services unavailable at this facility. Any emergency conditions have been stabilized to the ability of the ED prior to the transfer. Case was discussed with transfer center and transfer arranged to outside facility/higher level of care. 10/03/19 20:58 Paged out STEMI 10/03/19 21:04 d/w Dr. Stratton at [facility], will accept patient transfer. EKGs faxed to receiving facility. Facial laceration repair will be deferred for need for STEMI prompt assessment at the receiving facility. TNKase withheld secondary to absolute contraindication secondary to facial trauma just prior to arrival. Departure - Departure Time of Disposition: 21:10 Disposition: DC/Tfer to Other 70 Condition: Good Clinical Impression: NSTEMI (non-ST elevated myocardial infarction), Hypertensive emergency, Hyperglycemia, Noncompliance with medication regimen, Nasal bone fracture, Scalp laceration CVA (cerebral vascular accident) Qualifiers: CVA mechanism: unspecified Qualified Code(s): I63.9 - Cerebral infarction, unspecified - Discharge Information *PRESCRIPTION DRUG MONITORING PROGRAM REVIEWED*: Not Applicable *COPY OF PRESCRIPTION DRUG MONITORING REPORT IN PATIENT RADAMES: Not Applicable Referrals: PCP,None [Primary Care Provider] - Forms: ED Department Discharge Critical Care Note - Critical Care Note Comments: Critical Care: The high probability of sudden, clinically significant deterioration in the layo ent's condition required the highest level of my preparedness to intervene urgently. The services I provided to this patient were to treat and/or prevent clinically significant deterioration. Services included the following: chart data review, reviewing nursing notes and/or old charts, documentation time, senior science consultant collaboration regarding findings and treatment options, medication orders and ma nagement, direct patient care, vital sign assessments and ordering, interpreting and reviewing diagnostic studies/lab tests. Aggregate critical care time includes only time during which I was engaged in work directly related to the patient's care, as described above, whether at the bedside or elsewhere in the Emergency Department. It did not include time spent performing other reported procedures or the services of residents, students, nurses or physician assistants. Frequent interventions and/or frequent repeat evaluations were required as well as counseling and coordination of care regardi ng prognosis, treatments, and discussions with patient, staff and consultants. Critical Care (excluding other procedures): 40 minutes Sepsis Event Note (ED) - Evaluation Sepsis Screening Result: No Definite Risk - Focused Exam Vital Signs: Vital Signs Temp Pulse Pulse Resp BP BP Pulse Ox 10/03/19 20:57 97 16 167/99 H 97 10/03/19 20:45 101 H 174/107 H 10/03/19 19:23 97.5 F 103 H 18 166/108 H 95 - My Orders Last 24 Hours: My Active Orders 10/03/19 19:34 Vaccines to be Administered [RC] PER UNIT ROUTINE 10/03/19 19:36 Communication Order [RC] STAT - Assessment/Plan Last 24 Hours: My Active Orders 10/03/19 19:34 Vaccines to be Administered [RC] PER UNIT ROUTINE 10/03/19 19:36 Communication Order [RC] STAT
--- NOTE | 2019-10-03 20:32 | CT ---
Head CT Technique: Multiple axial sections through the brain were obtained. Intravenous contrast was not utilized. Comparison: Prior head CT study of 01/21/18. Findings: Ventricles along with basal cisterns and sulci over the convexities appear mildly prominent. Diminished density is noted within the periventricular and subcortical white matter on the left side. This represents an interval change from previous exam. Old infarct noted within the left basal ganglia. No evidence of intracranial hemorrhage. No midline shift or mass-effect is seen. Bone window settings were reviewed. Slightly displaced nasal bone fracture is noted. Small amount of air is noted within the soft tissues of the forehead presumably from the nasal bone fracture. Minimal mucosal thickening is seen within a portion of the posterior right ethmoid sinuses. Mastoid sinuses show nothing acute. No acute calvarial abnormality is appreciated. Impression: 1. Slightly displaced nasal bone fracture. 2. Small amount of air within the soft tissues of the forehead most likely relating to the nasal bone fracture. 3. Minimal ethmoid sinus finding believed to be chronic. 4. Low density within the left periventricular white matter which represents an interval change from previous exam and may represent a fairly acute white matter infarct. Old infarct is noted within the left basal ganglia. 5. No intracranial hemorrhage is seen. Diagnostic code #5 This report was dictated in MDT
--- NOTE | 2019-10-03 20:32 | CT ---
CT cervical spine Technique: Multiple axial sections were obtained from above C1 inferiorly to the inferior T3 level. Reconstructed sagittal and coronal images were obtained. Comparison: No prior cervical spine imaging. Findings: Anterior osteophytes are noted at C3-4, C4-5, C5-6 and C6-7. Vertebral body heights and disc spaces are maintained. No fracture is appreciated. Mild neural foraminal stenosis is noted at C5-6 on the left side. Other neural foramina are patent. No subluxation is seen. Impression: 1. Mild degenerative change. 2. Nothing acute is appreciated on cervical spine study. Diagnostic code #2 This report was dictated in MDT
[2019-10-03 20:37] LABS: BLOOD UREA NITROGEN,BUN 16 mg/dL (7.0-18.0); CARBON DIOXIDE,CO2 27.2 mmol/L (21.0-32.0); CHLORIDE,CL 97 mmol/L (98-107); GLUCOSE RANDOM 445 mg/dL (74-106); POTASSIUM,K 3.9 mmol/L (3.5-5.1); SODIUM,NA 135 mmol/L (136-148)
--- NOTE | 2019-10-03 20:37 | CT ---
CT facial bones Technique: Multiple axial sections through the facial bones were obtained. Reconstructed coronal and sagittal images were obtained. Intravenous contrast was not utilized. Comparison: Study correlated with head CT exam performed earlier on the same day, no prior facial bone study is available. Findings: Slightly displaced nasal bone fracture is again noted. Fracture is also noted within the nasal septum in 2 places. No additional fracture is seen. Multiple dental caries appear to be present. Mastoid sinuses are clear. Mild mucosal thickening is seen within a posterior right ethmoid sinus. No air-fluid levels are seen within the paranasal sinuses. Impression: 1. Mildly displaced nasal bone fracture as well as nasal septal fracture. 2. Sinus findings believed to be incidental. 3. Dental caries are present. 4. No other acute finding is seen. Diagnostic code #3 This report was dictated in MDT
[2019-10-03] MEDS ORDERED: Aspirin 81 MG Tab.Chew PO ONE (20:48)
[2019-10-04 06:50] VITALS: BP 168/89; PULSE 90
== END 2019-10-03 21:40 ==
LOC: MW.ED 19:15
DX: S02.2XXA Fracture of nasal bones, initial encounter for closed fracture (principal); S01.01XA Laceration without foreign body of scalp, initial encounter; I63.9 Cerebral infarction, unspecified; I21.4 Non-ST elevation (NSTEMI) myocardial infarction; I16.1 Hypertensive emergency; E11.65 Type 2 diabetes mellitus with hyperglycemia; Z91.14 Patient's other noncompliance with medication regimen; I10 Essential (primary) hypertension; E78.00 Pure hypercholesterolemia, unspecified; Z87.891 Personal history of nicotine dependence; Z79.82 Long term (current) use of aspirin; Z79.4 Long term (current) use of insulin; Z79.899 Other long term (current) drug therapy; W01.0XXA Fall on same level from slipping, tripping and stumbling without subsequent striking against object, initial encounter; Y92.513 Shop (commercial) as the place of occurrence of the external cause
CPT/HCPCS: 36415; 70450; 70486; 72125; 80053; 82962; 84484; 85025; 87635; 90471; 90715; 93005; 96361; 96374; 99291; A9270; J3490; J7120; U0002

== ENCOUNTER 2021-09-08 23:17 | Emergency (ER) | payer OTHER ==
[2021-09-09] MEDS ORDERED: Ondansetron 4 MG/2 ML SDV IVPUSH ONE (00:30)
[2021-09-09] MEDS ORDERED: Sodium Chloride 0.9% 1,000 ML IV ONE (01:29)
[2021-09-09 01:40] LABS: BLOOD UREA NITROGEN,BUN 15 mg/dL (7.0-18.0); CHLORIDE,CL 94 mmol/L (98-107); GLUCOSE RANDOM 441 mg/dL (74-106); LIPASE 116 U/L (73-393); POTASSIUM,K 4.2 mmol/L (3.5-5.1); SODIUM,NA 131 mmol/L (136-148)
[2021-09-09] MEDS ORDERED: Glucagon,Human Recombinant 1 MG Vial IM PRN (01:55)
[2021-09-09] MEDS ORDERED: Metoprolol Tartrate 5 MG/5 ML SDV IVPUSH ONE (01:55)
[2021-09-09] MEDS ORDERED: Insulin Regular, Human 100 Units/ML 10 ML Vial IVPUSH ONE (01:55)
[2021-09-09] MEDS ORDERED: 50% Dextrose in Water 50 ML Syringe IVPUSH PRN (01:55)
[2021-09-09] MEDS ORDERED: cefTRIAXone 500 MG in Lidocaine 1% 1 ML IM STA (02:57)
[2021-09-09 04:04] VITALS: BP 151/98; PULSE 88
== END 2021-09-09 03:25 | disposition home or self-care (01) ==
LOC: MW.ED 23:17
DX: K29.70 Gastritis, unspecified, without bleeding (principal); E11.65 Type 2 diabetes mellitus with hyperglycemia; E78.00 Pure hypercholesterolemia, unspecified; I10 Essential (primary) hypertension; M19.90 Unspecified osteoarthritis, unspecified site; Z86.73 Personal history of transient ischemic attack (TIA), and cerebral infarction without residual deficits; Z79.82 Long term (current) use of aspirin; Z79.4 Long term (current) use of insulin; Z79.899 Other long term (current) drug therapy
CPT/HCPCS: 36415; 80053; 81001; 82009; 83690; 85025; 87086; 96361; 96374; 96375; 99284; J2405; J3490; J7030; J1815-GY

== ENCOUNTER 2022-05-04 20:43 | Emergency (ER) | payer OTHER ==
[2022-05-04 21:51] LABS: BLOOD UREA NITROGEN,BUN 17 mg/dL (7.0-18.0); CARBON DIOXIDE,CO2 26.7 mmol/L (21.0-32.0); CHLORIDE,CL 95 mmol/L (98-107); GLUCOSE RANDOM 379 mg/dL (74-106); SODIUM,NA 131 mmol/L (136-148)
[2022-05-04 21:55] LABS: ESTIMATED GFR 64 mL/min (>60)
[2022-05-04] MEDS ORDERED: Sodium Chloride 0.9% 1,000 ML IV ONE (23:06)
[2022-05-05 00:56] VITALS: BP 121/61; PULSE 61
== END 2022-05-05 00:55 | disposition home or self-care (01) ==
LOC: MW.ED 20:43
DX: R47.01 Aphasia (principal); I10 Essential (primary) hypertension; E78.00 Pure hypercholesterolemia, unspecified; E11.9 Type 2 diabetes mellitus without complications; M19.90 Unspecified osteoarthritis, unspecified site; Z79.82 Long term (current) use of aspirin; Z79.84 Long term (current) use of oral hypoglycemic drugs; Z79.899 Other long term (current) drug therapy
CPT/HCPCS: 36415; 70450; 71045; 80053; 80305; 80307; 81001; 82009; 82803; 83735; 84484; 85025; 85610; 85730; 87635; 93005; 96360; 99285; J7030; U0002

== ENCOUNTER 2022-06-12 19:50 | Emergency (ER) | payer OTHER ==
[2022-06-12] MEDS ORDERED: Sodium Chloride 0.9% 1,000 ML IV ONE ×2 (19:54→20:49)
[2022-06-12 20:47] LABS: CARBON DIOXIDE,CO2 24.8 mmol/L (21.0-32.0); POTASSIUM,K 4.1 mmol/L (3.5-5.1)
[2022-06-12] MEDS ORDERED: Insulin Regular, Human 100 Units/ML 10 ML Vial IVPUSH ONE (20:49)
[2022-06-13 00:04] VITALS: BP 173/100; PULSE 101
== END 2022-06-12 22:44 | disposition home or self-care (01) ==
LOC: MW.ED 19:50
DX: E11.65 Type 2 diabetes mellitus with hyperglycemia (principal); N39.0 Urinary tract infection, site not specified; E78.00 Pure hypercholesterolemia, unspecified; I10 Essential (primary) hypertension; I25.10 Atherosclerotic heart disease of native coronary artery without angina pectoris; M19.90 Unspecified osteoarthritis, unspecified site; Z86.73 Personal history of transient ischemic attack (TIA), and cerebral infarction without residual deficits; Z79.82 Long term (current) use of aspirin; Z79.4 Long term (current) use of insulin; Z79.899 Other long term (current) drug therapy; Z20.822 Contact with and (suspected) exposure to COVID-19
CPT/HCPCS: 36415; 80053; 81001; 82009; 82803; 82947; 83735; 85025; 87635; 96360; 96361; 99284; J1815; J7030; U0002

== ENCOUNTER 2022-10-04 14:25 | Emergency (ER) | payer OTHER ==
[2022-10-04 14:54] LABS: BASOPHILS PERCENT AUTO 0.2 % (0.0-1.5); EOSINOPHILS PERCENT AUTO 0.3 % (0.0-7.0); HEMATOCRIT 40.9 % (38.0-50.0); LYMPHOCYTES ABSOLUTE AUTO 0.9 K/uL (0.6-2.4); LYMPHOCYTES PERCENT AUTO 9.5 % (16.0-40.0); MEAN CORPUSCULAR HEMOGLOBIN 30.7 pg (27.0-32.0); MEAN CORPUSCULAR HGB CONC 36.7 g/dL (31.0-37.0); MEAN CORPUSCULAR VOLUME 83.8 fL (80.0-98.0); MONOCYTES ABSOLUTE AUTO 0.6 K/uL (0.0-0.8); MONOCYTES PERCENT AUTO 5.9 % (0.0-15.0); NEUTROPHILS ABSOLUTE AUTO 8.3 K/uL (1.4-5.7); NEUTROPHILS PERCENT AUTO 84.1 % (48.0-80.0); NRBC ABSOLUTE 0 K/uL; PLATELET COUNT,PLT 210 K/uL (150-400); RED BLOOD CELL COUNT 4.88 M/uL (4.50-5.90); WHITE BLOOD CELL COUNT,WBC 9.89 K/uL (4.0-11.0)
[2022-10-04 15:38] LABS: INR 1.01 (0.86-1.11)
[2022-10-04 15:46] LABS: LACTIC ACID 1.1 mmol/L (0.4-2.0)
[2022-10-04 16:02] LABS: A/G RATIO 0.7 (0.9-1.6); BILIRUBIN TOTAL 0.4 mg/dL (0.2-1.0); CALCIUM 9.2 mg/dL (8.5-10.1); CARBON DIOXIDE,CO2 26.6 mmol/L (21.0-32.0); CREATININE 1.5 mg/dL (0.8-1.3); EST CRCL DRUG DOSING (CG) 55.43 mL/min; MAGNESIUM 1.9 mg/dL (1.8-2.4); POTASSIUM,K 4.6 mmol/L (3.5-5.1); PROTEIN TOTAL,TP 7.4 g/dL (6.4-8.2)
[2022-10-04] MEDS ORDERED: Sodium Chloride 0.9% 1,000 ML IV ONE (16:15)
[2022-10-04 20:37] VITALS: BP 127/89; PULSE 103
== END 2022-10-04 20:37 | disposition home or self-care (01) ==
LOC: MW.ED 14:25
DX: R53.1 Weakness (principal); I10 Essential (primary) hypertension; E78.00 Pure hypercholesterolemia, unspecified; E11.9 Type 2 diabetes mellitus without complications; Z79.4 Long term (current) use of insulin; Z79.899 Other long term (current) drug therapy
CPT/HCPCS: 36415; 70450; 71045; 80053; 83605; 83735; 85025; 85610; 93005; 96360; 96361; 99285; J7030

== ENCOUNTER 2022-11-21 14:55 | Inpatient (IN) | payer OTHER ==
[2022-11-21 17:25] LABS: BASOPHILS PERCENT AUTO 0.4 % (0.0-1.5); EOSINOPHILS ABSOLUTE AUTO 0.1 K/uL (0.0-0.7); HEMOGLOBIN 15.5 g/dL (13.0-17.0); LYMPHOCYTES ABSOLUTE AUTO 1.4 K/uL (0.6-2.4); LYMPHOCYTES PERCENT AUTO 27.3 % (16.0-40.0); MEAN CORPUSCULAR HEMOGLOBIN 30.5 pg (27.0-32.0); MEAN CORPUSCULAR VOLUME 84.6 fL (80.0-98.0); MONOCYTES ABSOLUTE AUTO 0.3 K/uL (0.0-0.8); NEUTROPHILS ABSOLUTE AUTO 3.4 K/uL (1.4-5.7); NEUTROPHILS PERCENT AUTO 65.3 % (48.0-80.0); NRBC ABSOLUTE 0 K/uL; PLATELET COUNT,PLT 206 K/uL (150-400); RED BLOOD CELL COUNT 5.08 M/uL (4.50-5.90); WHITE BLOOD CELL COUNT,WBC 5.16 K/uL (4.0-11.0)
[2022-11-21 17:44] LABS: A/G RATIO 0.7 (0.9-1.6); ALANINE AMINOTRANSFERASE,ALT 14 IU/L (14-63); ALBUMIN 2.9 g/dL (3.4-5.0); ALKALINE PHOSPHATASE 120 U/L (46-116); ASPARTATE AMNIOTRANSFERASE,AST 15 IU/L (15-37); BILIRUBIN TOTAL 0.5 mg/dL (0.2-1.0); BLOOD UREA NITROGEN,BUN 14 mg/dL (7.0-18.0); CALCIUM 9.1 mg/dL (8.5-10.1); CARBON DIOXIDE,CO2 27.7 mmol/L (21.0-32.0); CHLORIDE,CL 102 mmol/L (98-107); CREATININE 1.4 mg/dL (0.8-1.3); EST CRCL DRUG DOSING (CG) 63.13 mL/min; GLUCOSE RANDOM 182 mg/dL (74-106); LIPASE 42 U/L (16-77); POTASSIUM,K 4.3 mmol/L (3.5-5.1); PROTEIN TOTAL,TP 7.1 g/dL (6.4-8.2); SODIUM,NA 137 mmol/L (136-148); TSH ULTRASENSITIVE 1.43 uIU/mL (0.36-3.74)
[2022-11-21 17:46] LABS: ESTIMATED GFR 58 mL/min (>60); ETHANOL BLOOD MEDICAL < 3.0 mg/dL
[2022-11-21 17:50] LABS: BILIRUBIN,URINE NEGATIVE (NEGATIVE); COLOR,URINE YELLOW; GLUCOSE,URINE >=1000 mg/dL (NEGATIVE); KETONES,URINE TRACE mg/dL (NEGATIVE); LEUKOCYTE ESTERASE,URINE NEGATIVE (NEGATIVE); NITRITE,URINE POSITIVE (NEGATIVE); OCCULT BLOOD,URINE SMALL (NEGATIVE); PH,URINE 6.5 (5.0-8.0); PROTEIN,URINE >=300 mg/dL (NEGATIVE)
[2022-11-21 17:57] LABS: AMPHETAMINES SCREEN, URINE NEGATIVE (CUTOFF=500); BARBITURATE SCREEN,URINE NEGATIVE (CUTOFF=200); BENZODIAZEPINES SCREEN,URINE NEGATIVE (CUTOFF=150); BUPRENORPHINE SCREEN,URINE NEGATIVE (CUTOFF=10); METHADONE SCREEN, URINE NEGATIVE (CUTOFF=200); METHAMPHETAMINES SCREEN, URINE NEGATIVE (CUTOFF=500); OXYCODONE SCREEN,URINE NEGATIVE (CUT0FF=100); PCP SCREEN,URINE NEGATIVE (CUTOFF=25); PROPOXYPHENE SCREEN,URINE NEGATIVE (CUTOFF=300); THC SCREEN,URINE 20 NG/ML NEGATIVE (CUTOFF=50)
[2022-11-21] MEDS ORDERED: cefTRIAXone 1 GM in Sodium Chloride 0.9% 50 ML IV ONE (17:59)
[2022-11-21 18:14] LABS: APPEARANCE,URINE SLT CLOUDY
[2022-11-21 18:15] LABS: AMORPHOUS SEDIMENT,URINE MODERATE (NEGATIVE); BACTERIA,URINE FEW (NEGATIVE); EPITHELIAL CELLS,URINE RARE (NONE-FEW); WBC,URINE 20-23 (0-5/HPF)
[2022-11-21] MEDS ORDERED: Sodium Chloride 0.9% 20 ML SDV IV PRN (18:36)
[2022-11-21] MEDS ORDERED: Sodium Chloride 0.9% 10 ML Syringe FLUSH PRN (18:36)
[2022-11-21] MEDS ORDERED: Sodium Chloride 0.9% 2.5 ML Syringe FLUSH PRN (18:36)
[2022-11-21] MEDS ORDERED: Albuterol/Ipratropium 3.0-0.5 MG/3 ML Neb Soln NEB PRN (18:36)
[2022-11-21] MEDS ORDERED: Acetaminophen 325 MG Tab PO PRN (18:36)
[2022-11-21] MEDS ORDERED: Ondansetron 4 MG/2 ML SDV IVPUSH PRN (18:36)
[2022-11-21] MEDS ORDERED: 50% Dextrose in Water 50 ML Syringe IVPUSH PRN (19:24)
[2022-11-21] MEDS ORDERED: Glucagon,Human Recombinant 1 MG Vial IM PRN (19:24)
[2022-11-21] MEDS: Insulin Aspart 100 Units/ML 3 ML Pen SUBCUT SCH ×2 (20:33→20:34)
[2022-11-22 06:03] LABS: BASOPHILS PERCENT AUTO 0.5 % (0.0-1.5); EOSINOPHILS ABSOLUTE AUTO 0.1 K/uL (0.0-0.7); EOSINOPHILS PERCENT AUTO 1.2 % (0.0-7.0); HEMATOCRIT 40.1 % (38.0-50.0); HEMOGLOBIN 14.3 g/dL (13.0-17.0); LYMPHOCYTES ABSOLUTE AUTO 1.2 K/uL (0.6-2.4); LYMPHOCYTES PERCENT AUTO 21.7 % (16.0-40.0); MEAN CORPUSCULAR HEMOGLOBIN 30.2 pg (27.0-32.0); MEAN CORPUSCULAR HGB CONC 35.7 g/dL (31.0-37.0); MEAN CORPUSCULAR VOLUME 84.6 fL (80.0-98.0); MONOCYTES ABSOLUTE AUTO 0.5 K/uL (0.0-0.8); MONOCYTES PERCENT AUTO 8.1 % (0.0-15.0); NEUTROPHILS ABSOLUTE AUTO 3.9 K/uL (1.4-5.7); NEUTROPHILS PERCENT AUTO 68.5 % (48.0-80.0); NRBC ABSOLUTE 0 K/uL; PLATELET COUNT,PLT 208 K/uL (150-400); RED BLOOD CELL COUNT 4.74 M/uL (4.50-5.90); WHITE BLOOD CELL COUNT,WBC 5.71 K/uL (4.0-11.0)
[2022-11-22 06:22] LABS: BLOOD UREA NITROGEN,BUN 17 mg/dL (7.0-18.0); CALCIUM 8.6 mg/dL (8.5-10.1); CARBON DIOXIDE,CO2 27.3 mmol/L (21.0-32.0); CHLORIDE,CL 100 mmol/L (98-107); CREATININE 1.4 mg/dL (0.8-1.3); ESTIMATED GFR 58 mL/min (>60); GLUCOSE RANDOM 190 mg/dL (74-106); MAGNESIUM 1.6 mg/dL (1.8-2.4); POTASSIUM,K 3.9 mmol/L (3.5-5.1); SODIUM,NA 137 mmol/L (136-148)
[2022-11-22] MEDS: Insulin Aspart 100 Units/ML 3 ML Pen SUBCUT SCH ×3 (08:30→17:01)
[2022-11-22] MEDS: atorvaSTATin 20 MG Tab PO SCH (10:30)
[2022-11-22] MEDS: cefTRIAXone 1 GM in Sodium Chloride 0.9% 50 ML IV SCH (10:45)
[2022-11-22] MEDS: Metoprolol Succinate 100 MG Tab.ER PO SCH (10:45)
[2022-11-22] MEDS ORDERED: Magnesium Sulfate/Water 2 GM in Premix Bag 1 BAG IV ONE (14:30)
[2022-11-23 06:01] LABS: BASOPHILS PERCENT AUTO 0.3 % (0.0-1.5); EOSINOPHILS ABSOLUTE AUTO 0.1 K/uL (0.0-0.7); EOSINOPHILS PERCENT AUTO 1.5 % (0.0-7.0); HEMATOCRIT 36.3 % (38.0-50.0); HEMOGLOBIN 12.8 g/dL (13.0-17.0); LYMPHOCYTES ABSOLUTE AUTO 1.2 K/uL (0.6-2.4); LYMPHOCYTES PERCENT AUTO 19.2 % (16.0-40.0); MEAN CORPUSCULAR HEMOGLOBIN 29.6 pg (27.0-32.0); MEAN CORPUSCULAR HGB CONC 35.3 g/dL (31.0-37.0); MONOCYTES ABSOLUTE AUTO 0.5 K/uL (0.0-0.8); MONOCYTES PERCENT AUTO 8.3 % (0.0-15.0); NEUTROPHILS ABSOLUTE AUTO 4.4 K/uL (1.4-5.7); NEUTROPHILS PERCENT AUTO 70.7 % (48.0-80.0); NRBC ABSOLUTE 0 K/uL; PLATELET COUNT,PLT 206 K/uL (150-400); RED BLOOD CELL COUNT 4.32 M/uL (4.50-5.90); WHITE BLOOD CELL COUNT,WBC 6.15 K/uL (4.0-11.0)
[2022-11-23 06:20] LABS: BLOOD UREA NITROGEN,BUN 26 mg/dL (7.0-18.0); CALCIUM 8.4 mg/dL (8.5-10.1); CARBON DIOXIDE,CO2 27.3 mmol/L (21.0-32.0); CHLORIDE,CL 100 mmol/L (98-107); CREATININE 1.4 mg/dL (0.8-1.3); GLUCOSE RANDOM 289 mg/dL (74-106); POTASSIUM,K 4.2 mmol/L (3.5-5.1); SODIUM,NA 134 mmol/L (136-148)
[2022-11-23 06:21] LABS: ESTIMATED GFR 58 mL/min (>60)
[2022-11-23] MEDS: Insulin Aspart 100 Units/ML 3 ML Pen SUBCUT SCH ×3 (08:59→16:50)
[2022-11-23] MEDS: cefTRIAXone 1 GM in Sodium Chloride 0.9% 50 ML IV SCH (09:07)
[2022-11-23] MEDS: atorvaSTATin 20 MG Tab PO SCH (09:13)
[2022-11-23] MEDS: Metoprolol Succinate 100 MG Tab.ER PO SCH (09:13)
[2022-11-23] MEDS: Insulin Glargine,Hum.Rec.Anlog 100 UNIT/ML 3 ML Pen SUBCUT SCH ×2 (12:09→20:59)
[2022-11-24] MEDS: Insulin Glargine,Hum.Rec.Anlog 100 UNIT/ML 3 ML Pen SUBCUT SCH ×2 (09:00→20:55)
[2022-11-24] MEDS: Insulin Aspart 100 Units/ML 3 ML Pen SUBCUT SCH ×3 (09:00→17:12)
[2022-11-24] MEDS: Metoprolol Succinate 100 MG Tab.ER PO SCH (09:10)
[2022-11-24] MEDS: atorvaSTATin 20 MG Tab PO SCH (09:10)
[2022-11-24] MEDS: cefTRIAXone 1 GM in Sodium Chloride 0.9% 50 ML IV SCH (09:10)
[2022-11-24 16:06] LABS: BLOOD UREA NITROGEN,BUN 28 mg/dL (7.0-18.0); CALCIUM 9.3 mg/dL (8.5-10.1); CARBON DIOXIDE,CO2 25.5 mmol/L (21.0-32.0); CHLORIDE,CL 101 mmol/L (98-107); CREATININE 1.4 mg/dL (0.8-1.3); GLUCOSE RANDOM 189 mg/dL (74-106); POTASSIUM,K 4.6 mmol/L (3.5-5.1); SODIUM,NA 135 mmol/L (136-148)
[2022-11-24 16:08] LABS: ESTIMATED GFR 58 mL/min (>60)
[2022-11-24 16:29] LABS: BASOPHILS PERCENT AUTO 0.2 % (0.0-1.5); EOSINOPHILS ABSOLUTE AUTO 0.1 K/uL (0.0-0.7); EOSINOPHILS PERCENT AUTO 1.7 % (0.0-7.0); HEMATOCRIT 41.7 % (38.0-50.0); LYMPHOCYTES ABSOLUTE AUTO 1.8 K/uL (0.6-2.4); LYMPHOCYTES PERCENT AUTO 27.6 % (16.0-40.0); MEAN CORPUSCULAR HEMOGLOBIN 30.4 pg (27.0-32.0); MEAN CORPUSCULAR VOLUME 84.4 fL (80.0-98.0); MONOCYTES ABSOLUTE AUTO 0.5 K/uL (0.0-0.8); NEUTROPHILS PERCENT AUTO 62.5 % (48.0-80.0); PLATELET COUNT,PLT 234 K/uL (150-400); RED BLOOD CELL COUNT 4.94 M/uL (4.50-5.90); WHITE BLOOD CELL COUNT,WBC 6.34 K/uL (4.0-11.0)
[2022-11-25 05:42] LABS: BASOPHILS PERCENT AUTO 0.3 % (0.0-1.5); EOSINOPHILS ABSOLUTE AUTO 0.1 K/uL (0.0-0.7); EOSINOPHILS PERCENT AUTO 1.4 % (0.0-7.0); HEMATOCRIT 40.4 % (38.0-50.0); HEMOGLOBIN 14.3 g/dL (13.0-17.0); LYMPHOCYTES ABSOLUTE AUTO 1.2 K/uL (0.6-2.4); MEAN CORPUSCULAR HGB CONC 35.4 g/dL (31.0-37.0); MEAN CORPUSCULAR VOLUME 84.7 fL (80.0-98.0); MONOCYTES ABSOLUTE AUTO 0.6 K/uL (0.0-0.8); MONOCYTES PERCENT AUTO 8.6 % (0.0-15.0); NEUTROPHILS ABSOLUTE AUTO 4.5 K/uL (1.4-5.7); NEUTROPHILS PERCENT AUTO 70.7 % (48.0-80.0); NRBC ABSOLUTE 0 K/uL; PLATELET COUNT,PLT 194 K/uL (150-400); RED BLOOD CELL COUNT 4.77 M/uL (4.50-5.90); WHITE BLOOD CELL COUNT,WBC 6.41 K/uL (4.0-11.0)
[2022-11-25 05:55] LABS: BLOOD UREA NITROGEN,BUN 30 mg/dL (7.0-18.0); CARBON DIOXIDE,CO2 26.1 mmol/L (21.0-32.0); CHLORIDE,CL 101 mmol/L (98-107); CREATININE 1.6 mg/dL (0.8-1.3); GLUCOSE RANDOM 231 mg/dL (74-106); POTASSIUM,K 4.7 mmol/L (3.5-5.1); SODIUM,NA 135 mmol/L (136-148)
[2022-11-25 05:56] LABS: ESTIMATED GFR 50 mL/min (>60)
[2022-11-25] MEDS: Insulin Aspart 100 Units/ML 3 ML Pen SUBCUT SCH ×3 (08:04→16:40)
[2022-11-25] MEDS: Metoprolol Succinate 100 MG Tab.ER PO SCH (08:48)
[2022-11-25] MEDS: Insulin Glargine,Hum.Rec.Anlog 100 UNIT/ML 3 ML Pen SUBCUT SCH ×2 (08:48→20:58)
[2022-11-25] MEDS: cefTRIAXone 1 GM in Sodium Chloride 0.9% 50 ML IV SCH (08:50)
[2022-11-25] MEDS: atorvaSTATin 20 MG Tab PO SCH (08:50)
[2022-11-25] MEDS ORDERED: Sodium Chloride 0.9% 1,000 ML IV SCH (09:30)
[2022-11-26 05:35] LABS: BASOPHILS PERCENT AUTO 0.3 % (0.0-1.5); EOSINOPHILS ABSOLUTE AUTO 0.2 K/uL (0.0-0.7); EOSINOPHILS PERCENT AUTO 2.3 % (0.0-7.0); HEMATOCRIT 38.9 % (38.0-50.0); HEMOGLOBIN 13.6 g/dL (13.0-17.0); LYMPHOCYTES ABSOLUTE AUTO 1.2 K/uL (0.6-2.4); LYMPHOCYTES PERCENT AUTO 17.8 % (16.0-40.0); MEAN CORPUSCULAR HEMOGLOBIN 29.4 pg (27.0-32.0); MEAN CORPUSCULAR VOLUME 84.2 fL (80.0-98.0); MONOCYTES ABSOLUTE AUTO 0.6 K/uL (0.0-0.8); MONOCYTES PERCENT AUTO 8.5 % (0.0-15.0); NEUTROPHILS ABSOLUTE AUTO 4.6 K/uL (1.4-5.7); NEUTROPHILS PERCENT AUTO 71.1 % (48.0-80.0); NRBC ABSOLUTE 0 K/uL; PLATELET COUNT,PLT 212 K/uL (150-400); RED BLOOD CELL COUNT 4.62 M/uL (4.50-5.90); WHITE BLOOD CELL COUNT,WBC 6.47 K/uL (4.0-11.0)
[2022-11-26 05:57] LABS: BLOOD UREA NITROGEN,BUN 31 mg/dL (7.0-18.0); CALCIUM 8.6 mg/dL (8.5-10.1); CARBON DIOXIDE,CO2 25.4 mmol/L (21.0-32.0); CHLORIDE,CL 101 mmol/L (98-107); CREATININE 1.5 mg/dL (0.8-1.3); GLUCOSE RANDOM 266 mg/dL (74-106); MAGNESIUM 1.7 mg/dL (1.8-2.4); POTASSIUM,K 4.9 mmol/L (3.5-5.1); SODIUM,NA 134 mmol/L (136-148)
[2022-11-26 06:02] LABS: ESTIMATED GFR 54 mL/min (>60)
[2022-11-26] MEDS: atorvaSTATin 20 MG Tab PO SCH (08:11)
[2022-11-26] MEDS: Metoprolol Succinate 100 MG Tab.ER PO SCH (08:11)
[2022-11-26] MEDS: Insulin Glargine,Hum.Rec.Anlog 100 UNIT/ML 3 ML Pen SUBCUT SCH ×2 (08:12→21:12)
[2022-11-26] MEDS: Insulin Aspart 100 Units/ML 3 ML Pen SUBCUT SCH ×3 (08:12→17:13)
[2022-11-26] MEDS: cefTRIAXone 1 GM in Sodium Chloride 0.9% 50 ML IV SCH (08:18)
[2022-11-26] MEDS: Aspirin 81 MG Tab.Chew PO SCH (10:59)
[2022-11-26] MEDS: Clopidogrel 75 MG Tab PO SCH (10:59)
[2022-11-26] MEDS ORDERED: Gadobenate Dimeglumine 529 MG/ML 20 ML SDV IVPUSH STA (13:32)
[2022-11-26] MEDS ORDERED: Iopamidol 755 MG/ML 500 ML Multipack Bottle IVPUSH STA (17:01)
[2022-11-27] MEDS: Insulin Aspart 100 Units/ML 3 ML Pen SUBCUT SCH ×2 (06:34→11:44)
[2022-11-27] MEDS: Metoprolol Succinate 100 MG Tab.ER PO SCH (08:25)
[2022-11-27] MEDS: Aspirin 81 MG Tab.Chew PO SCH (08:25)
[2022-11-27] MEDS: Clopidogrel 75 MG Tab PO SCH (08:25)
[2022-11-27] MEDS: atorvaSTATin 20 MG Tab PO SCH (08:26)
[2022-11-27] MEDS: Insulin Glargine,Hum.Rec.Anlog 100 UNIT/ML 3 ML Pen SUBCUT SCH (08:30)
[2022-11-27] MEDS: cefTRIAXone 1 GM in Sodium Chloride 0.9% 50 ML IV SCH (08:33)
[2022-11-27 11:36] VITALS: BP 111/65; PULSE 65
== END 2022-11-27 15:00 | disposition home health service (06) | DRG 690 ==
LOC: MW.ED 14:55 → MW.MS 18:12
PROVIDERS: ADMIT Family Medicine; ATTEND Family Medicine
DX: N39.0 Urinary tract infection, site not specified (principal); N30.00 Acute cystitis without hematuria; I69.351 Hemiplegia and hemiparesis following cerebral infarction affecting right dominant side; I25.10 Atherosclerotic heart disease of native coronary artery without angina pectoris; I25.2 Old myocardial infarction; I10 Essential (primary) hypertension; E11.9 Type 2 diabetes mellitus without complications; I69.392 Facial weakness following cerebral infarction; I69.328 Other speech and language deficits following cerebral infarction; E78.00 Pure hypercholesterolemia, unspecified; R41.0 Disorientation, unspecified; M19.90 Unspecified osteoarthritis, unspecified site; I69.322 Dysarthria following cerebral infarction; Z79.84 Long term (current) use of oral hypoglycemic drugs; Z79.4 Long term (current) use of insulin; Z79.899 Other long term (current) drug therapy; Z95.5 Presence of coronary angioplasty implant and graft; Z90.49 Acquired absence of other specified parts of digestive tract; Z98.890 Other specified postprocedural states
CPT/HCPCS: 36415; 70450; 80053; 80305; 80307; 81001; 82947; 83605; 83690; 84443; 84484; 85025; 87086; 93005; 96374; 99285; J0696; J3490; 36410; 70496; 70496-26; 70498; 70498-26; 70553; 70553-26; 80048; 83735; 84100; 93010; 97110-GP; 97162-GP; 97530-GP; A9270-GY; A9577; J1815-GY; J3475; J7030; Q9967

== ENCOUNTER 2022-12-03 19:43 | Emergency (ER) | payer OTHER ==
[2022-12-03 21:23] LABS: BASOPHILS PERCENT AUTO 0.4 % (0.0-1.5); EOSINOPHILS ABSOLUTE AUTO 0.1 K/uL (0.0-0.7); EOSINOPHILS PERCENT AUTO 1.2 % (0.0-7.0); HEMATOCRIT 39.1 % (38.0-50.0); LYMPHOCYTES ABSOLUTE AUTO 0.8 K/uL (0.6-2.4); LYMPHOCYTES PERCENT AUTO 9.9 % (16.0-40.0); MEAN CORPUSCULAR HEMOGLOBIN 30.7 pg (27.0-32.0); MEAN CORPUSCULAR HGB CONC 35.8 g/dL (31.0-37.0); MEAN CORPUSCULAR VOLUME 85.7 fL (80.0-98.0); MONOCYTES ABSOLUTE AUTO 0.7 K/uL (0.0-0.8); MONOCYTES PERCENT AUTO 8.1 % (0.0-15.0); NEUTROPHILS ABSOLUTE AUTO 6.7 K/uL (1.4-5.7); NEUTROPHILS PERCENT AUTO 80.4 % (48.0-80.0); NRBC ABSOLUTE 0 K/uL; PLATELET COUNT,PLT 182 K/uL (150-400); RED BLOOD CELL COUNT 4.56 M/uL (4.50-5.90); WHITE BLOOD CELL COUNT,WBC 8.32 K/uL (4.0-11.0)
[2022-12-03 22:09] LABS: A/G RATIO 0.8 (0.9-1.6); ALANINE AMINOTRANSFERASE,ALT 19 IU/L (14-63); ALBUMIN 2.9 g/dL (3.4-5.0); ALKALINE PHOSPHATASE 114 U/L (46-116); ASPARTATE AMNIOTRANSFERASE,AST 28 IU/L (15-37); BILIRUBIN TOTAL 0.5 mg/dL (0.2-1.0); BLOOD UREA NITROGEN,BUN 24 mg/dL (7.0-18.0); CHLORIDE,CL 100 mmol/L (98-107); CREATININE 1.4 mg/dL (0.8-1.3); GLUCOSE RANDOM 143 mg/dL (74-106); LIPASE 50 U/L (16-77); POTASSIUM,K 5.3 mmol/L (3.5-5.1); PROTEIN TOTAL,TP 6.4 g/dL (6.4-8.2); SODIUM,NA 137 mmol/L (136-148)
[2022-12-03 22:13] LABS: ESTIMATED GFR 58 mL/min (>60)
[2022-12-03 22:21] VITALS: BP 144/101; PULSE 101
[2022-12-03] MEDS ORDERED: Magnesium Oxide 400 MG Tab PO STA (22:25)
== END 2022-12-03 22:39 | disposition home or self-care (01) ==
LOC: MW.ED 19:43
DX: R11.10 Vomiting, unspecified (principal); E87.5 Hyperkalemia; E83.42 Hypomagnesemia; I25.10 Atherosclerotic heart disease of native coronary artery without angina pectoris; I10 Essential (primary) hypertension; E11.9 Type 2 diabetes mellitus without complications; Z95.5 Presence of coronary angioplasty implant and graft; Z86.73 Personal history of transient ischemic attack (TIA), and cerebral infarction without residual deficits; Z79.82 Long term (current) use of aspirin; Z79.02 Long term (current) use of antithrombotics/antiplatelets; Z79.899 Other long term (current) drug therapy
CPT/HCPCS: 36415; 80053; 82947; 83690; 83735; 85025; 93005; 99284; A9270; 93010

== ENCOUNTER 2023-01-06 14:13 | Emergency (ER) | payer OTHER ==
[2023-01-06] MEDS ORDERED: Clindamycin Phosphate in D5W 600 MG in Premix Bag 1 BAG IV ONE ×4 (15:35→15:43)
[2023-01-06 16:03] LABS: BASOPHILS PERCENT AUTO 0.6 % (0.0-1.5); EOSINOPHILS ABSOLUTE AUTO 0.1 K/uL (0.0-0.7); EOSINOPHILS PERCENT AUTO 2.4 % (0.0-7.0); HEMATOCRIT 35.2 % (38.0-50.0); HEMOGLOBIN 12.3 g/dL (13.0-17.0); LYMPHOCYTES ABSOLUTE AUTO 1.2 K/uL (0.6-2.4); LYMPHOCYTES PERCENT AUTO 23.5 % (16.0-40.0); MEAN CORPUSCULAR HEMOGLOBIN 30.2 pg (27.0-32.0); MEAN CORPUSCULAR HGB CONC 34.9 g/dL (31.0-37.0); MEAN CORPUSCULAR VOLUME 86.5 fL (80.0-98.0); MONOCYTES ABSOLUTE AUTO 0.6 K/uL (0.0-0.8); MONOCYTES PERCENT AUTO 11.8 % (0.0-15.0); NEUTROPHILS ABSOLUTE AUTO 3.1 K/uL (1.4-5.7); NEUTROPHILS PERCENT AUTO 61.7 % (48.0-80.0); NRBC ABSOLUTE 0 K/uL; PLATELET COUNT,PLT 281 K/uL (150-400); RED BLOOD CELL COUNT 4.07 M/uL (4.50-5.90); WHITE BLOOD CELL COUNT,WBC 4.98 K/uL (4.0-11.0)
[2023-01-06 16:55] LABS: A/G RATIO 0.7 (0.9-1.6); ALBUMIN 2.7 g/dL (3.4-5.0); BILIRUBIN TOTAL 0.5 mg/dL (0.2-1.0); C-REACTIVE PROTEIN 1.9 mg/dL (0.00-0.90); CALCIUM 8.2 mg/dL (8.5-10.1); CREATININE 1.5 mg/dL (0.8-1.3); EST CRCL DRUG DOSING (CG) 56.83 mL/min; POTASSIUM,K 4.1 mmol/L (3.5-5.1); PROTEIN TOTAL,TP 6.7 g/dL (6.4-8.2)
[2023-01-06 18:40] VITALS: BP 149/88; PULSE 82
== END 2023-01-06 18:40 | disposition home or self-care (01) ==
LOC: MW.ED 14:13
DX: L03.115 Cellulitis of right lower limb (principal); I10 Essential (primary) hypertension; E11.9 Type 2 diabetes mellitus without complications; I25.2 Old myocardial infarction; E78.00 Pure hypercholesterolemia, unspecified; Z79.84 Long term (current) use of oral hypoglycemic drugs; Z79.899 Other long term (current) drug therapy
CPT/HCPCS: 36415; 73630; 80053; 85025; 85652; 86140; 96365; 99283; J3490

== ENCOUNTER 2023-01-26 09:40 | Emergency (ER) | payer OTHER ==
[2023-01-26 12:32] VITALS: BP 158/84; PULSE 87
== END 2023-01-26 12:30 | disposition home or self-care (01) ==
LOC: MW.ED 09:40
DX: M25.552 Pain in left hip (principal); E78.00 Pure hypercholesterolemia, unspecified; I10 Essential (primary) hypertension; I25.2 Old myocardial infarction; E11.9 Type 2 diabetes mellitus without complications; Z79.84 Long term (current) use of oral hypoglycemic drugs; Z79.899 Other long term (current) drug therapy; Z79.4 Long term (current) use of insulin; W07.XXXA Fall from chair, initial encounter
CPT/HCPCS: 70450; 70450-26; 71045; 71045-26; 72125; 72125-26; 72170; 72170-26; 99281; 99284

== ENCOUNTER 2023-01-30 17:36 | Emergency (ER) | payer OTHER ==
[2023-01-30 22:41] VITALS: BP 144/84; PULSE 96
== END 2023-01-30 21:30 | disposition home or self-care (01) ==
LOC: MW.ED 17:36
DX: M79.89 Other specified soft tissue disorders (principal); I10 Essential (primary) hypertension; I25.2 Old myocardial infarction; E78.00 Pure hypercholesterolemia, unspecified; M19.90 Unspecified osteoarthritis, unspecified site; E11.9 Type 2 diabetes mellitus without complications; Z79.4 Long term (current) use of insulin; Z79.82 Long term (current) use of aspirin; Z79.02 Long term (current) use of antithrombotics/antiplatelets; Z79.899 Other long term (current) drug therapy
CPT/HCPCS: 93971-26-RT; 93971-RT; 99282; 99283

== ENCOUNTER 2023-02-06 12:59 | Inpatient (IN) | payer OTHER ==
[2023-02-06] MEDS ORDERED: Lidocaine 4% 1 each Patch TOP STA (13:05)
[2023-02-06] MEDS ORDERED: Ibuprofen 600 MG Tab PO STA (13:23)
[2023-02-06] MEDS ORDERED: Acetaminophen 500 MG Tab PO STA (13:23)
[2023-02-06] MEDS ORDERED: Sodium Chloride 0.9% 2.5 ML Syringe FLUSH PRN (13:32)
[2023-02-06] MEDS ORDERED: Sodium Chloride 0.9% 10 ML Syringe FLUSH PRN (13:32)
[2023-02-06] MEDS ORDERED: traMADol 50 MG Tab PO STA (14:55)
[2023-02-06 15:49] LABS: BASOPHILS ABSOLUTE AUTO 0.03 K/uL (0.00-0.20); BASOPHILS PERCENT AUTO 0.4 % (0.0-1.0); EOSINOPHILS ABSOLUTE AUTO 0.08 K/uL (0.00-0.45); HEMATOCRIT 31.8 % (42.0-52.0); HEMOGLOBIN 11.7 g/dL (14.0-18.0); IMMATURE GRAN ABSOLUTE AUTO 0.02 K/uL (0.00-0.05); IMMATURE GRAN PERCENT AUTO 0.3 % (0.0-0.4); LYMPHOCYTES ABSOLUTE AUTO 1.02 K/uL (1.00-4.80); LYMPHOCYTES PERCENT AUTO 12.8 % (24.0-44.0); MEAN CORPUSCULAR HGB CONC 36.8 g/dL (32.0-36.0); MEAN CORPUSCULAR VOLUME 84.1 fL (83.0-99.0); MEAN PLATELET VOLUME 10.6 fL (9.4-12.4); MONOCYTES PERCENT AUTO 8.8 % (0.0-8.0); NEUTROPHILS ABSOLUTE AUTO 6.13 K/uL (1.80-7.70); NEUTROPHILS PERCENT AUTO 76.7 % (41.0-71.0); PLATELET COUNT,PLT 184 K/uL (150-400); RED BLOOD CELL COUNT 3.78 M/uL (4.52-5.90); WHITE BLOOD CELL COUNT,WBC 7.98 K/uL (3.9-11.3)
[2023-02-06 15:52] LABS: CORONAVIRUS COVID-19 NAA NEGATIVE (NEGATIVE); INFLUENZA A NAA NEGATIVE (NEGATIVE); INFLUENZA B NAA NEGATIVE (NEGATIVE)
[2023-02-06 16:07] LABS: A/G RATIO 0.7 (0.9-1.6); ALBUMIN 2.5 g/dL (3.4-5.0); BILIRUBIN TOTAL 0.5 mg/dL (0.2-1.0); CALCIUM 8.7 mg/dL (8.5-10.1); CARBON DIOXIDE,CO2 19.9 mmol/L (21.0-32.0); CREATININE 1.4 mg/dL (0.8-1.3); EST CRCL DRUG DOSING (CG) 59.04 mL/min; MAGNESIUM 1.6 mg/dL (1.8-2.4); POTASSIUM,K 4.4 mmol/L (3.5-5.1); PROTEIN TOTAL,TP 6.2 g/dL (6.4-8.2)
[2023-02-06] MEDS ORDERED: Ondansetron 4 MG/2 ML SDV IVPUSH PRN (18:37)
[2023-02-06] MEDS ORDERED: Naloxone 0.4 MG/ML SDV IVPUSH PRN (18:37)
[2023-02-06] MEDS ORDERED: 50% Dextrose in Water 50 ML Syringe IVPUSH PRN (18:37)
[2023-02-06] MEDS ORDERED: Glucagon,Human Recombinant 1 MG Vial IM PRN (18:37)
[2023-02-06] MEDS ORDERED: Morphine 2 MG/ML SYRINGE IVPUSH PRN (18:37)
[2023-02-06] MEDS ORDERED: traMADol 50 MG Tab PO PRN (18:37)
[2023-02-06 20:57] LABS: BILIRUBIN,URINE NEGATIVE (NEGATIVE); COLOR,URINE YELLOW; GLUCOSE,URINE 100 mg/dL (NEGATIVE); KETONES,URINE TRACE mg/dL (NEGATIVE); LEUKOCYTE ESTERASE,URINE NEGATIVE (NEGATIVE); NITRITE,URINE NEGATIVE (NEGATIVE); OCCULT BLOOD,URINE MODERATE (NEGATIVE); PROTEIN,URINE >=300 mg/dL (NEGATIVE); UROBILINOGEN,URINE 0.2 EU/dL (<2.0)
[2023-02-06 21:05] LABS: APPEARANCE,URINE HAZY
[2023-02-06 21:06] LABS: AMORPHOUS SEDIMENT,URINE FEW (NEGATIVE); BACTERIA,URINE FEW (NEGATIVE); EPITHELIAL CELLS,URINE RARE (NONE-FEW); RBC,URINE 0-3 (0-2/HPF)
[2023-02-07 07:15] LABS: BASOPHILS ABSOLUTE AUTO 0.04 K/uL (0.00-0.20); BASOPHILS PERCENT AUTO 0.8 % (0.0-1.0); EOSINOPHILS ABSOLUTE AUTO 0.11 K/uL (0.00-0.45); EOSINOPHILS PERCENT AUTO 2.1 % (0.0-6.0); HEMATOCRIT 29.5 % (42.0-52.0); HEMOGLOBIN 10.9 g/dL (14.0-18.0); IMMATURE GRAN ABSOLUTE AUTO 0.04 K/uL (0.00-0.05); IMMATURE GRAN PERCENT AUTO 0.8 % (0.0-0.4); LYMPHOCYTES ABSOLUTE AUTO 0.95 K/uL (1.00-4.80); LYMPHOCYTES PERCENT AUTO 18.2 % (24.0-44.0); MEAN CORPUSCULAR HEMOGLOBIN 30.9 pg (28.0-32.0); MEAN CORPUSCULAR HGB CONC 36.9 g/dL (32.0-36.0); MEAN CORPUSCULAR VOLUME 83.6 fL (83.0-99.0); MEAN PLATELET VOLUME 9.8 fL (9.4-12.4); MONOCYTES ABSOLUTE AUTO 0.51 K/uL (0.00-0.80); MONOCYTES PERCENT AUTO 9.8 % (0.0-8.0); NEUTROPHILS ABSOLUTE AUTO 3.57 K/uL (1.80-7.70); NEUTROPHILS PERCENT AUTO 68.3 % (41.0-71.0); PLATELET COUNT,PLT 193 K/uL (150-400); RED BLOOD CELL COUNT 3.53 M/uL (4.52-5.90); WHITE BLOOD CELL COUNT,WBC 5.22 K/uL (3.9-11.3)
[2023-02-07] MEDS: Insulin Aspart 100 Units/ML 3 ML Pen SUBCUT SCH ×3 (07:22→16:06)
[2023-02-07 07:46] LABS: A/G RATIO 0.7 (0.9-1.6); ALBUMIN 2.5 g/dL (3.4-5.0); BILIRUBIN TOTAL 0.5 mg/dL (0.2-1.0); CALCIUM 8.5 mg/dL (8.5-10.1); CARBON DIOXIDE,CO2 24.8 mmol/L (21.0-32.0); CREATININE 1.7 mg/dL (0.8-1.3); EST CRCL DRUG DOSING (CG) 45.89 mL/min; MAGNESIUM 1.6 mg/dL (1.8-2.4); POTASSIUM,K 4.3 mmol/L (3.5-5.1); PROTEIN TOTAL,TP 6.3 g/dL (6.4-8.2)
[2023-02-07] MEDS: atorvaSTATin 20 MG Tab PO SCH (08:05)
[2023-02-07] MEDS ORDERED: Magnesium Sulfate/Water 2 GM in Premix Bag 1 BAG IV ONE (17:50)
[2023-02-07] MEDS: Enoxaparin 40 MG/0.4 ML Syringe SUBCUT SCH (18:43)
[2023-02-08 06:50] LABS: BASOPHILS ABSOLUTE AUTO 0.02 K/uL (0.00-0.20); BASOPHILS PERCENT AUTO 0.5 % (0.0-1.0); EOSINOPHILS ABSOLUTE AUTO 0.07 K/uL (0.00-0.45); EOSINOPHILS PERCENT AUTO 1.6 % (0.0-6.0); HEMATOCRIT 25.2 % (42.0-52.0); HEMOGLOBIN 9.3 g/dL (14.0-18.0); IMMATURE GRAN ABSOLUTE AUTO 0.01 K/uL (0.00-0.05); IMMATURE GRAN PERCENT AUTO 0.2 % (0.0-0.4); LYMPHOCYTES ABSOLUTE AUTO 0.91 K/uL (1.00-4.80); LYMPHOCYTES PERCENT AUTO 20.7 % (24.0-44.0); MEAN CORPUSCULAR HEMOGLOBIN 30.7 pg (28.0-32.0); MEAN CORPUSCULAR HGB CONC 36.9 g/dL (32.0-36.0); MEAN CORPUSCULAR VOLUME 83.2 fL (83.0-99.0); MEAN PLATELET VOLUME 9.8 fL (9.4-12.4); MONOCYTES ABSOLUTE AUTO 0.49 K/uL (0.00-0.80); MONOCYTES PERCENT AUTO 11.1 % (0.0-8.0); NEUTROPHILS PERCENT AUTO 65.9 % (41.0-71.0); PLATELET COUNT,PLT 202 K/uL (150-400); RED BLOOD CELL COUNT 3.03 M/uL (4.52-5.90)
[2023-02-08 07:18] LABS: A/G RATIO 0.7 (0.9-1.6); ALBUMIN 2.3 g/dL (3.4-5.0); BILIRUBIN TOTAL 0.4 mg/dL (0.2-1.0); CALCIUM 8.7 mg/dL (8.5-10.1); CARBON DIOXIDE,CO2 25.2 mmol/L (21.0-32.0); CREATININE 1.4 mg/dL (0.8-1.3); EST CRCL DRUG DOSING (CG) 55.72 mL/min; POTASSIUM,K 3.7 mmol/L (3.5-5.1); PROTEIN TOTAL,TP 5.8 g/dL (6.4-8.2)
[2023-02-08] MEDS: Insulin Aspart 100 Units/ML 3 ML Pen SUBCUT SCH ×3 (07:26→16:43)
[2023-02-08 07:41] LABS: PERCENT FE SATURATION 12.87 % (20-55)
[2023-02-08] MEDS: atorvaSTATin 20 MG Tab PO SCH (08:32)
[2023-02-08] MEDS: Clopidogrel 75 MG Tab PO SCH (08:32)
[2023-02-08] MEDS: Ferrous Sulfate 325 MG Tab PO SCH (08:32)
[2023-02-08] MEDS: Aspirin 81 MG Tab.Chew PO SCH (08:32)
[2023-02-08] MEDS: Enoxaparin 40 MG/0.4 ML Syringe SUBCUT SCH (17:10)
[2023-02-09 08:14] LABS: BASOPHILS ABSOLUTE AUTO 0.02 K/uL (0.00-0.20); BASOPHILS PERCENT AUTO 0.3 % (0.0-1.0); EOSINOPHILS ABSOLUTE AUTO 0.02 K/uL (0.00-0.45); EOSINOPHILS PERCENT AUTO 0.3 % (0.0-6.0); HEMATOCRIT 27.9 % (42.0-52.0); HEMOGLOBIN 10.3 g/dL (14.0-18.0); IMMATURE GRAN ABSOLUTE AUTO 0.02 K/uL (0.00-0.05); IMMATURE GRAN PERCENT AUTO 0.3 % (0.0-0.4); LYMPHOCYTES ABSOLUTE AUTO 0.41 K/uL (1.00-4.80); LYMPHOCYTES PERCENT AUTO 6.5 % (24.0-44.0); MEAN CORPUSCULAR HEMOGLOBIN 30.7 pg (28.0-32.0); MEAN CORPUSCULAR HGB CONC 36.9 g/dL (32.0-36.0); MEAN PLATELET VOLUME 9.4 fL (9.4-12.4); MONOCYTES ABSOLUTE AUTO 0.39 K/uL (0.00-0.80); MONOCYTES PERCENT AUTO 6.2 % (0.0-8.0); NEUTROPHILS ABSOLUTE AUTO 5.47 K/uL (1.80-7.70); NEUTROPHILS PERCENT AUTO 86.4 % (41.0-71.0); PLATELET COUNT,PLT 232 K/uL (150-400); RED BLOOD CELL COUNT 3.36 M/uL (4.52-5.90); WHITE BLOOD CELL COUNT,WBC 6.33 K/uL (3.9-11.3)
[2023-02-09] MEDS: Insulin Aspart 100 Units/ML 3 ML Pen SUBCUT SCH ×3 (08:14→16:33)
[2023-02-09] MEDS: Ferrous Sulfate 325 MG Tab PO SCH (08:15)
[2023-02-09] MEDS: Aspirin 81 MG Tab.Chew PO SCH (08:15)
[2023-02-09] MEDS: atorvaSTATin 20 MG Tab PO SCH (08:15)
[2023-02-09] MEDS: Clopidogrel 75 MG Tab PO SCH (08:15)
[2023-02-09 08:35] LABS: A/G RATIO 0.6 (0.9-1.6); ALBUMIN 2.6 g/dL (3.4-5.0); BILIRUBIN TOTAL 0.7 mg/dL (0.2-1.0); CALCIUM 8.9 mg/dL (8.5-10.1); CARBON DIOXIDE,CO2 22.3 mmol/L (21.0-32.0); CREATININE 1.6 mg/dL (0.8-1.3); EST CRCL DRUG DOSING (CG) 48.76 mL/min; POTASSIUM,K 4.2 mmol/L (3.5-5.1); PROTEIN TOTAL,TP 6.7 g/dL (6.4-8.2)
[2023-02-09] MEDS ORDERED: Haloperidol 5 MG Tab PO ONE (14:50)
[2023-02-09] MEDS: Enoxaparin 40 MG/0.4 ML Syringe SUBCUT SCH (17:08)
[2023-02-10 06:46] LABS: BASOPHILS ABSOLUTE AUTO 0.02 K/uL (0.00-0.20); BASOPHILS PERCENT AUTO 0.3 % (0.0-1.0); EOSINOPHILS ABSOLUTE AUTO 0.07 K/uL (0.00-0.45); EOSINOPHILS PERCENT AUTO 1.1 % (0.0-6.0); HEMATOCRIT 24.5 % (42.0-52.0); HEMOGLOBIN 8.9 g/dL (14.0-18.0); IMMATURE GRAN ABSOLUTE AUTO 0.01 K/uL (0.00-0.05); IMMATURE GRAN PERCENT AUTO 0.2 % (0.0-0.4); LYMPHOCYTES ABSOLUTE AUTO 0.64 K/uL (1.00-4.80); LYMPHOCYTES PERCENT AUTO 9.7 % (24.0-44.0); MEAN CORPUSCULAR HEMOGLOBIN 30.6 pg (28.0-32.0); MEAN CORPUSCULAR HGB CONC 36.3 g/dL (32.0-36.0); MEAN CORPUSCULAR VOLUME 84.2 fL (83.0-99.0); MEAN PLATELET VOLUME 9.8 fL (9.4-12.4); MONOCYTES ABSOLUTE AUTO 0.47 K/uL (0.00-0.80); MONOCYTES PERCENT AUTO 7.1 % (0.0-8.0); NEUTROPHILS PERCENT AUTO 81.6 % (41.0-71.0); PLATELET COUNT,PLT 192 K/uL (150-400); RED BLOOD CELL COUNT 2.91 M/uL (4.52-5.90); WHITE BLOOD CELL COUNT,WBC 6.61 K/uL (3.9-11.3)
[2023-02-10 07:00] LABS: CALCIUM 8.8 mg/dL (8.5-10.1); CARBON DIOXIDE,CO2 26.7 mmol/L (21.0-32.0); CREATININE 1.4 mg/dL (0.8-1.3); EST CRCL DRUG DOSING (CG) 55.72 mL/min; POTASSIUM,K 4.2 mmol/L (3.5-5.1)
[2023-02-10] MEDS: atorvaSTATin 20 MG Tab PO SCH (08:03)
[2023-02-10] MEDS: Clopidogrel 75 MG Tab PO SCH (08:03)
[2023-02-10] MEDS: Insulin Aspart 100 Units/ML 3 ML Pen SUBCUT SCH ×3 (08:03→17:02)
[2023-02-10] MEDS: Ferrous Sulfate 325 MG Tab PO SCH (08:03)
[2023-02-10] MEDS: Aspirin 81 MG Tab.Chew PO SCH (08:03)
[2023-02-10] MEDS: Enoxaparin 40 MG/0.4 ML Syringe SUBCUT SCH (17:02)
[2023-02-11 07:36] LABS: BASOPHILS ABSOLUTE AUTO 0.03 K/uL (0.00-0.20); BASOPHILS PERCENT AUTO 0.5 % (0.0-1.0); EOSINOPHILS ABSOLUTE AUTO 0.14 K/uL (0.00-0.45); EOSINOPHILS PERCENT AUTO 2.5 % (0.0-6.0); HEMATOCRIT 24.1 % (42.0-52.0); HEMOGLOBIN 8.8 g/dL (14.0-18.0); IMMATURE GRAN ABSOLUTE AUTO 0.02 K/uL (0.00-0.05); IMMATURE GRAN PERCENT AUTO 0.4 % (0.0-0.4); LYMPHOCYTES ABSOLUTE AUTO 0.76 K/uL (1.00-4.80); LYMPHOCYTES PERCENT AUTO 13.5 % (24.0-44.0); MEAN CORPUSCULAR HEMOGLOBIN 30.6 pg (28.0-32.0); MEAN CORPUSCULAR HGB CONC 36.5 g/dL (32.0-36.0); MEAN CORPUSCULAR VOLUME 83.7 fL (83.0-99.0); MEAN PLATELET VOLUME 9.4 fL (9.4-12.4); MONOCYTES ABSOLUTE AUTO 0.48 K/uL (0.00-0.80); MONOCYTES PERCENT AUTO 8.6 % (0.0-8.0); NEUTROPHILS ABSOLUTE AUTO 4.18 K/uL (1.80-7.70); NEUTROPHILS PERCENT AUTO 74.5 % (41.0-71.0); PLATELET COUNT,PLT 215 K/uL (150-400); RED BLOOD CELL COUNT 2.88 M/uL (4.52-5.90); WHITE BLOOD CELL COUNT,WBC 5.61 K/uL (3.9-11.3)
[2023-02-11 07:54] LABS: A/G RATIO 0.6 (0.9-1.6); ALBUMIN 2.2 g/dL (3.4-5.0); BILIRUBIN TOTAL 0.5 mg/dL (0.2-1.0); CALCIUM 8.5 mg/dL (8.5-10.1); CARBON DIOXIDE,CO2 28.8 mmol/L (21.0-32.0); CREATININE 1.4 mg/dL (0.8-1.3); EST CRCL DRUG DOSING (CG) 55.72 mL/min; POTASSIUM,K 4.4 mmol/L (3.5-5.1); PROTEIN TOTAL,TP 6.2 g/dL (6.4-8.2)
[2023-02-11] MEDS: Insulin Aspart 100 Units/ML 3 ML Pen SUBCUT SCH ×3 (08:00→17:14)
[2023-02-11] MEDS: Ferrous Sulfate 325 MG Tab PO SCH (08:04)
[2023-02-11] MEDS: atorvaSTATin 20 MG Tab PO SCH (08:04)
[2023-02-11] MEDS: Clopidogrel 75 MG Tab PO SCH (08:04)
[2023-02-11] MEDS: Aspirin 81 MG Tab.Chew PO SCH (08:04)
[2023-02-11] MEDS: Enoxaparin 40 MG/0.4 ML Syringe SUBCUT SCH (17:23)
[2023-02-11] MEDS: Acetaminophen 325 MG Tab PO PRN (20:14)
[2023-02-12] MEDS: Acetaminophen 325 MG Tab PO PRN (03:29)
[2023-02-12 06:10] LABS: BASOPHILS ABSOLUTE AUTO 0.02 K/uL (0.00-0.20); BASOPHILS PERCENT AUTO 0.5 % (0.0-1.0); EOSINOPHILS ABSOLUTE AUTO 0.15 K/uL (0.00-0.45); EOSINOPHILS PERCENT AUTO 3.4 % (0.0-6.0); HEMATOCRIT 20.8 % (42.0-52.0); HEMOGLOBIN 7.7 g/dL (14.0-18.0); IMMATURE GRAN ABSOLUTE AUTO 0.01 K/uL (0.00-0.05); IMMATURE GRAN PERCENT AUTO 0.2 % (0.0-0.4); LYMPHOCYTES ABSOLUTE AUTO 0.82 K/uL (1.00-4.80); LYMPHOCYTES PERCENT AUTO 18.7 % (24.0-44.0); MEAN CORPUSCULAR VOLUME 83.9 fL (83.0-99.0); MEAN PLATELET VOLUME 9.3 fL (9.4-12.4); MONOCYTES PERCENT AUTO 9.1 % (0.0-8.0); NEUTROPHILS ABSOLUTE AUTO 2.98 K/uL (1.80-7.70); NEUTROPHILS PERCENT AUTO 68.1 % (41.0-71.0); PLATELET COUNT,PLT 220 K/uL (150-400); RED BLOOD CELL COUNT 2.48 M/uL (4.52-5.90); WHITE BLOOD CELL COUNT,WBC 4.38 K/uL (3.9-11.3)
[2023-02-12 07:13] LABS: A/G RATIO 0.6 (0.9-1.6); ALBUMIN 2.1 g/dL (3.4-5.0); BILIRUBIN TOTAL 0.4 mg/dL (0.2-1.0); CALCIUM 8.3 mg/dL (8.5-10.1); CARBON DIOXIDE,CO2 27.2 mmol/L (21.0-32.0); CREATININE 1.4 mg/dL (0.8-1.3); EST CRCL DRUG DOSING (CG) 55.72 mL/min; POTASSIUM,K 4.5 mmol/L (3.5-5.1); PROTEIN TOTAL,TP 5.7 g/dL (6.4-8.2)
[2023-02-12] MEDS: Ferrous Sulfate 325 MG Tab PO SCH (08:14)
[2023-02-12] MEDS: Insulin Aspart 100 Units/ML 3 ML Pen SUBCUT SCH ×3 (08:20→16:40)
[2023-02-12] MEDS: atorvaSTATin 20 MG Tab PO SCH (08:23)
[2023-02-12] MEDS: Clopidogrel 75 MG Tab PO SCH (08:25)
[2023-02-12] MEDS: Aspirin 81 MG Tab.Chew PO SCH (08:26)
[2023-02-12] MEDS: Enoxaparin 40 MG/0.4 ML Syringe SUBCUT SCH (18:26)
[2023-02-13] MEDS: Acetaminophen 325 MG Tab PO PRN ×3 (07:14→20:55)
[2023-02-13] MEDS: Ferrous Sulfate 325 MG Tab PO SCH (07:17)
[2023-02-13] MEDS: Insulin Aspart 100 Units/ML 3 ML Pen SUBCUT SCH ×3 (07:19→16:39)
[2023-02-13] MEDS: atorvaSTATin 20 MG Tab PO SCH (10:05)
[2023-02-13] MEDS: Clopidogrel 75 MG Tab PO SCH (10:05)
[2023-02-13] MEDS: Aspirin 81 MG Tab.Chew PO SCH (10:05)
[2023-02-13] MEDS: Enoxaparin 40 MG/0.4 ML Syringe SUBCUT SCH (18:46)
[2023-02-14 05:45] LABS: BASOPHILS ABSOLUTE AUTO 0.02 K/uL (0.00-0.20); BASOPHILS PERCENT AUTO 0.4 % (0.0-1.0); EOSINOPHILS ABSOLUTE AUTO 0.16 K/uL (0.00-0.45); EOSINOPHILS PERCENT AUTO 2.9 % (0.0-6.0); HEMATOCRIT 20.6 % (42.0-52.0); HEMOGLOBIN 7.5 g/dL (14.0-18.0); IMMATURE GRAN ABSOLUTE AUTO 0.02 K/uL (0.00-0.05); IMMATURE GRAN PERCENT AUTO 0.4 % (0.0-0.4); LYMPHOCYTES ABSOLUTE AUTO 0.66 K/uL (1.00-4.80); LYMPHOCYTES PERCENT AUTO 12.1 % (24.0-44.0); MEAN CORPUSCULAR HEMOGLOBIN 30.9 pg (28.0-32.0); MEAN CORPUSCULAR HGB CONC 36.4 g/dL (32.0-36.0); MEAN CORPUSCULAR VOLUME 84.8 fL (83.0-99.0); MEAN PLATELET VOLUME 9.1 fL (9.4-12.4); MONOCYTES ABSOLUTE AUTO 0.47 K/uL (0.00-0.80); MONOCYTES PERCENT AUTO 8.6 % (0.0-8.0); NEUTROPHILS ABSOLUTE AUTO 4.14 K/uL (1.80-7.70); NEUTROPHILS PERCENT AUTO 75.6 % (41.0-71.0); PLATELET COUNT,PLT 214 K/uL (150-400); RED BLOOD CELL COUNT 2.43 M/uL (4.52-5.90); WHITE BLOOD CELL COUNT,WBC 5.47 K/uL (3.9-11.3)
[2023-02-14 06:05] LABS: CALCIUM 8.7 mg/dL (8.5-10.1); CREATININE 1.3 mg/dL (0.8-1.3); EST CRCL DRUG DOSING (CG) 60.01 mL/min; POTASSIUM,K 4.4 mmol/L (3.5-5.1)
[2023-02-14] MEDS: Insulin Aspart 100 Units/ML 3 ML Pen SUBCUT SCH ×3 (08:32→16:53)
[2023-02-14] MEDS: Ferrous Sulfate 325 MG Tab PO SCH (08:44)
[2023-02-14] MEDS: Clopidogrel 75 MG Tab PO SCH (08:45)
[2023-02-14] MEDS: atorvaSTATin 20 MG Tab PO SCH (08:45)
[2023-02-14] MEDS: Aspirin 81 MG Tab.Chew PO SCH (08:45)
[2023-02-15 06:14] LABS: BASOPHILS ABSOLUTE AUTO 0.02 K/uL (0.00-0.20); BASOPHILS PERCENT AUTO 0.3 % (0.0-1.0); EOSINOPHILS ABSOLUTE AUTO 0.11 K/uL (0.00-0.45); EOSINOPHILS PERCENT AUTO 1.9 % (0.0-6.0); HEMATOCRIT 20.7 % (42.0-52.0); HEMOGLOBIN 7.5 g/dL (14.0-18.0); IMMATURE GRAN ABSOLUTE AUTO 0.05 K/uL (0.00-0.05); IMMATURE GRAN PERCENT AUTO 0.8 % (0.0-0.4); LYMPHOCYTES ABSOLUTE AUTO 0.97 K/uL (1.00-4.80); LYMPHOCYTES PERCENT AUTO 16.4 % (24.0-44.0); MEAN CORPUSCULAR HEMOGLOBIN 31.1 pg (28.0-32.0); MEAN CORPUSCULAR HGB CONC 36.2 g/dL (32.0-36.0); MEAN CORPUSCULAR VOLUME 85.9 fL (83.0-99.0); MEAN PLATELET VOLUME 9.5 fL (9.4-12.4); MONOCYTES ABSOLUTE AUTO 0.51 K/uL (0.00-0.80); MONOCYTES PERCENT AUTO 8.6 % (0.0-8.0); NEUTROPHILS ABSOLUTE AUTO 4.26 K/uL (1.80-7.70); PLATELET COUNT,PLT 216 K/uL (150-400); RED BLOOD CELL COUNT 2.41 M/uL (4.52-5.90); WHITE BLOOD CELL COUNT,WBC 5.92 K/uL (3.9-11.3)
[2023-02-15 06:38] LABS: A/G RATIO 0.6 (0.9-1.6); ALBUMIN 2.3 g/dL (3.4-5.0); BILIRUBIN TOTAL 0.4 mg/dL (0.2-1.0); CALCIUM 8.8 mg/dL (8.5-10.1); CARBON DIOXIDE,CO2 27.5 mmol/L (21.0-32.0); CREATININE 1.2 mg/dL (0.8-1.3); EST CRCL DRUG DOSING (CG) 65.01 mL/min; POTASSIUM,K 4.7 mmol/L (3.5-5.1)
[2023-02-15] MEDS: Insulin Aspart 100 Units/ML 3 ML Pen SUBCUT SCH ×2 (07:49→11:51)
[2023-02-15] MEDS: Aspirin 81 MG Tab.Chew PO SCH (08:08)
[2023-02-15] MEDS: Ferrous Sulfate 325 MG Tab PO SCH (08:08)
[2023-02-15] MEDS: Clopidogrel 75 MG Tab PO SCH (08:08)
[2023-02-15] MEDS: atorvaSTATin 20 MG Tab PO SCH (08:08)
[2023-02-15] MEDS ORDERED: Sodium Ferric Gluconate Cmplex 125 MG in Sodium Chloride 0.9% 100 ML IV ONE (09:20)
[2023-02-15 12:02] VITALS: BP 112/65; PULSE 99
== END 2023-02-15 13:28 | disposition home or self-care (01) | DRG 563 ==
LOC: MW.ED 12:59 → MW.MS 18:52 → OBSVTOIN 02-07 10:38
PROVIDERS: ADMIT Internal Medicine; ATTEND Internal Medicine
DX: S42.211A Unspecified displaced fracture of surgical neck of right humerus, initial encounter for closed fracture (principal); Z74.1 Need for assistance with personal care; S42.291A Other displaced fracture of upper end of right humerus, initial encounter for closed fracture; I69.351 Hemiplegia and hemiparesis following cerebral infarction affecting right dominant side; I10 Essential (primary) hypertension; E11.9 Type 2 diabetes mellitus without complications; E78.00 Pure hypercholesterolemia, unspecified; I25.10 Atherosclerotic heart disease of native coronary artery without angina pectoris; M19.90 Unspecified osteoarthritis, unspecified site; Z79.82 Long term (current) use of aspirin; Z79.899 Other long term (current) drug therapy; Z79.4 Long term (current) use of insulin; W19.XXXA Unspecified fall, initial encounter; I25.2 Old myocardial infarction; Z95.5 Presence of coronary angioplasty implant and graft; Z90.49 Acquired absence of other specified parts of digestive tract; Z98.890 Other specified postprocedural states; Z11.52 Encounter for screening for COVID-19; Z79.84 Long term (current) use of oral hypoglycemic drugs; Z79.02 Long term (current) use of antithrombotics/antiplatelets; W18.30XA Fall on same level, unspecified, initial encounter; Y92.89 Other specified places as the place of occurrence of the external cause
CPT/HCPCS: 0240U; 36415; 70450; 71045; 72125; 72170; 73030; 73070; 73090; 73200; 73502; 76377; 80048; 80053; 81001; 82728; 82947; 83550; 83690; 83735; 85025; 93005; 97110; 97163; 97166; 97530; 99285; 93010; 99222; 99231; 99232; 99239; 99284; A9270-GY; G0378; J1650; J1815-GY; J2270; J3475; J3490